=== PATIENT | male | born 1960 | race Caucasian/White ===

== ENCOUNTER 2019-07-17 10:29 | Observation (INO) | payer MEDICARE ==
--- NOTE | 2019-07-17 10:37 | ERPHSYRPT ---
- History of Present Illness Time Seen by Provider: 07/17/19 10:37 Source: patient, EMS Exam Limitations: clinical condition Physician History: 59 y/o diabetic white male with htn, h/o cva, in renal failure on [facility] dialysis. pt woke up relatively normal neurologically this am. bs 180s. pts out of pen insulin and was given vial humalog 2 units subq. pt became diaphoretic and a bit lethargic. ems called. bs on arrival 41. pt given 2 rounds of oral glucose and D10 iv. repeat bs 155 and neurologically improved. pt denies cp, denies soa , denies abd pain. Timing/Duration: today Severity: moderate Associated Symptoms: weakness Allergies/Adverse Reactions: No Known Drug Allergies Allergy (Unverified 07/17/19 10:45) - Review of Systems Constitutional: No Symptoms Eyes: No Symptoms Ears, Nose, & Throat: No Symptoms Respiratory: No Symptoms Cardiac: No Symptoms Abdominal/Gastrointestinal: No Symptoms Genitourinary Symptoms: No Symptoms Skin: No Symptoms Neurological: No Symptoms Psychological: No Symptoms Endocrine: Excessive Sweating (earlier at home) Hematologic/Lymphatic: No Symptoms Immunological/Allergic: No Symptoms All Other Systems: Reviewed and Negative - Past Medical History Pertinent Past Medical History: Yes Neurological History: No Pertinent History ENT History: No Pertinent History Cardiac History: No Pertinent History Respiratory History: No Pertinent History Endocrine Medical History: Diabetes Type I Musculoskeletal History: No Pertinent History GI Medical History: No Pertinent History History: Dialysis, Renal Disease Psycho-Social History: No Pertinent History Male Reproductive Disorders: No Pertinent History - Past Surgical History Neuro Surgical History: No Pertinent History Cardiac: No Pertinent History Respiratory: No Pertinent History Gastrointestinal: No Pertinent History Genitourinary: No Pertinent History Musculoskeletal: No Pertinent History Male Surgical History: No Pertinent History - Nursing Vital Signs Nursing Vital Signs: Initial Vital Signs Temperature 97.0 F 07/17/19 10:31 Pulse Rate 65 07/17/19 10:31 Respiratory Rate 16 07/17/19 10:31 Blood Pressure 101/58 07/17/19 10:31 O2 Sat by Pulse Oximetry 96 07/17/19 10:31 Pain Scale Pain Intensity 0 - Physical Exam General Appearance: lethargy (rousable) Eye Exam: PERRL/EOMI, eyes nml inspection Ears, Nose, Throat Exam: normal ENT inspection, moist mucous membranes Neck Exam: normal inspection, non-tender, supple, full range of motion Respiratory Exam: normal breath sounds, lungs clear, airway intact, No chest tenderness, No respiratory distress Cardiovascular Exam: regular rate/rhythm, normal heart sounds, normal peripheral pulses Gastrointestinal/Abdomen Exam: soft, normal bowel sounds, No tenderness Rectal Exam: not done Back Exam: normal inspection, normal range of motion, No CVA tenderness, No vertebral tenderness Extremity Exam: normal inspection, normal range of motion, pelvis stable Neurologic Exam: oriented x 3, cooperative, 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 as tested, other ( mildly lethargic but rousable) Skin Exam: diaphoresis Lymphatic Exam: No adenopathy SpO2 Interpretation: normal O2 Delivery: Room Air - Course Nursing assessment & vital signs reviewed: Yes Ordered Tests: Active Orders 24 hr Category Date Time Status Accucheck STAT Care 07/17/19 11:10 Active Director [facility] STAT Care 07/17/19 11:11 Active EKG-ER Only STAT Care 07/17/19 11:10 Active IV Insertion STAT Care 07/17/19 11:10 Active 1800 Calorie ADA Diet 07/17/19 Dinner Active CBC W DIFF Stat Lab 07/17/19 11:30 Completed CMP Stat Lab 07/17/19 11:30 Completed CULTURE,URINE Stat Lab 07/17/19 11:45 Received UA W/RFX UR CULTURE Stat Lab 07/17/19 11:45 Completed Medication Summary Discontinued Medications Generic Name Dose Route Start Last Admin Trade Name Freq PRN Reason Stop Dose Admin Sodium Chloride Confirm 07/17/19 11:09 Sodium Chloride 0.9% 1000 Ml Administered 07/17/19 11:10 Dose 1,000 mls @ ud .ROUTE .STK-MED ONE Sodium Chloride 1,000 mls @ 999 mls/hr 07/17/19 11:10 07/17/19 12:34 Sodium Chloride 0.9% 1000 Ml IV 07/17/19 12:10 Infused .Q1H1M STA Infusion Ceftriaxone Sodium/Dextrose 1 g in 50 mls @ 100 mls/hr 07/17/19 14:44 14:55 Rocephin 1 Gm-D5w 50 Ml Bag IV 07/17/19 15:13 100 ml/hr STAT STA 100 mls/hr Administration Ceftriaxone Sodium/Dextrose Confirm 07/17/19 14:53 Rocephin 1 Gm-D5w 50 Ml Bag Administered 07/17/19 14:54 Dose 1 g in 50 mls @ ud IV .STK-MED ONE Lab/Rad Data: Laboratory Result Diagrams 07/17/19 11:30 07/17/19 11:30 Laboratory Results 07/17/19 07/17/19 07/17/19 Range/Units 11:45 11:30 11:30 WBC 7.4 (4.0-10.5) K/mm3 RBC 3.69 L (4.1-5.6) M/mm3 Hgb 11.6 L (12.5-18.0) gm/dl Hct 35.9 L (42-50) % MCV 97.3 (78-100) fl MCH 31.4 (26-32) pg MCHC 32.3 (32-36) g/dl RDW 12.9 (11.5-14.0) % Plt Count 165 (150-450) K/mm3 MPV 10.1 H (6-9.5) fl Gran % 55.5 (36.0-66.0) % Eos # (Auto) 0.37 (0-0.5) Absolute Lymphs (auto) 2.32 (1.0-4.6) Absolute Monos (auto) 0.56 (0.0-1.3) Lymphocytes % 31.4 (24.0-44.0) % Monocytes % 7.6 (0.0-12.0) % Eosinophils % 5.0 (0.00-5.0) % Basophils % 0.5 (0.0-0.4) % Absolute Granulocytes 4.11 (1.4-6.9) Basophils # 0.04 (0-0.4) Sodium 140 (137-145) mmol/L Potassium 4.0 (3.5-5.1) mmol/L Chloride 93 L (98-107) mmol/L Carbon Dioxide 30 (22-30) mmol/L Anion Gap 20.5 H (5-15) MEQ/L BUN 50 H (9-20) mg/dL Creatinine 6.96 H (0.66-1.25) mg/dL Estimated GFR 8.7 ML/MIN Glucose 108 H (74-106) mg/dL Calcium 8.7 (8.4-10.2) mg/dL Total Bilirubin 0.60 (0.2-1.3) mg/dL AST 22 (17-59) U/L ALT 25 (0-50) U/L Alkaline Phosphatase 59 (38-126) U/L Serum Total Protein 6.9 (6.3-8.2) g/dL Albumin 4.1 (3.5-5.0) g/dL Urine Color YELLOW (YELLOW) Urine Appearance SLIGHTLY CLOUDY (CLEAR) Urine pH 9.0 (5-6) Ur Specific [place] 1.008 (1.005-1.025) Urine Protein 100 (Negative) Urine Ketones NEGATIVE (NEGATIVE) Urine Blood NEGATIVE (0-5) Андрей/ul Urine Nitrite NEGATIVE (NEGATIVE) Urine Bilirubin NEGATIVE (NEGATIVE) Urine Urobilinogen NEGATIVE (0-1) mg/dL Ur Leukocyte Esterase MODERATE (NEGATIVE) Urine WBC (Auto) 51-100 (0-5) /HPF Urine RBC (Auto) 11-15 (0-2) /HPF U Epithel Cells (Auto) NONE (FEW) /HPF Urine Bacteria (Auto) RARE (NEGATIVE) /HPF Urine Culture Reflexed ORDERED SEPARATELY (NO) Urine Glucose 50 (NEGATIVE) mg/dL - Progress Progress: improved, re-examined Discussed with : Basim Counseled pt/family regarding: lab results, diagnosis - Departure Departure Disposition: Observation Clinical Impression: Lethargy, Hypoglycemia, UTI (urinary tract infection) Condition: Stable Critical Care Time: No Critical Care Time(excluding separately billable procedures): Critical 30-74 mins Referrals: INGRID TAMEZ MD [Primary Care Provider] -
[2019-07-17] MEDS ORDERED: Sodium Chloride 0.9% 1000 ML 1,000 ML ONE (11:09)
[2019-07-17] MEDS ORDERED: Sodium Chloride 0.9% 1000 ML 1,000 ML IV STA (11:10)
[2019-07-17 11:36] LABS: Absolute Neutrophil Ct (ANC) 4.11 (1.4-6.9); BASOPHIL % 0.5 % (0.0-0.4); Basophil (Absolute #) 0.04 (0-0.4); Eosinophil (Absolute #) 0.37 (0-0.5); Hematocrit 35.9 % (42-50); Hemoglobin 11.6 gm/dl (12.5-18.0); Lymphocyte (Absolute #) 2.32 (1.0-4.6); Lymphocytes % 31.4 % (24.0-44.0); Mean Cell Volume 97.3 fl (78-100); Mean Corpuscular Hemoglobin 31.4 pg (26-32); Mean Corpuscular Hgb Concent. 32.3 g/dl (32-36); Mean Platelet Volume 10.1 fl (6-9.5); Monocyte (Absolute #) 0.56 (0.0-1.3); Monocytes % 7.6 % (0.0-12.0); Neutrophil % 55.5 % (36.0-66.0); Platelet Count 165 K/mm3 (150-450); Red Blood Count 3.69 M/mm3 (4.1-5.6); Red Cell Distribution Width 12.9 % (11.5-14.0); White Blood Count 7.4 K/mm3 (4.0-10.5)
[2019-07-17 11:57] LABS: ALBUMIN 4.1 g/dL (3.5-5.0); ANION GAP 20.5 MEQ/L (5-15); BILIRUBIN,TOTAL 0.6 mg/dL (0.2-1.3); Calcium 8.7 mg/dL (8.4-10.2); Creatinine 1 6.96 mg/dL (0.66-1.25); Total Protein 6.9 g/dL (6.3-8.2)
[2019-07-17 12:11] LABS: Appearance SLIGHTLY CLOUDY (CLEAR); Bacteria RARE /HPF (NEGATIVE); Bilirubin NEGATIVE (NEGATIVE); Blood NEGATIVE Ery/ul (0-5); Glucose 50 mg/dL (NEGATIVE); Ketones NEGATIVE (NEGATIVE); Leukocyte Esterase MODERATE (NEGATIVE); Nitrite NEGATIVE (NEGATIVE); Protein,Urine Dip 100 (Negative); Specific Gravity 1.008 (1.005-1.025); Urobilinogen NEGATIVE mg/dL (0-1); WBC 51-100 /HPF (0-5)
[2019-07-17] MEDS ORDERED: ROCEPHIN 1 Gm-D5w 50 ml Bag** 1 G/50 ML IVPB IV STA (14:44)
[2019-07-17] MEDS ORDERED: ROCEPHIN 1 Gm-D5w 50 ml Bag** 1 G/50 ML IVPB IV ONE (14:53)
[2019-07-17] MEDS ORDERED: Dextrose 5% -0.45 NaCl 1000 ML 1,000 ML IV ONE (16:39)
[2019-07-17] MEDS ORDERED: TYLENOL 325 MG PO PRN (16:57)
[2019-07-17] MEDS ORDERED: Zofran 4 MG/2 ML VIAL IV PRN (16:57)
[2019-07-17] MEDS ORDERED: Dextrose 5% -0.45 NaCl 1000 ML 1,000 ML IV SCH (17:15)
[2019-07-17] MEDS ORDERED: PRED-FORTE 1% OPHTHALMIC OP SCH ×2 (18:15→22:00)
[2019-07-17] MEDS ORDERED: Zestril 20 MG PO ONE (18:30)
[2019-07-17] MEDS ORDERED: PLAVIX 75 MG Tablet PO ONE (18:30)
[2019-07-17] MEDS ORDERED: Flomax 0.4 MG PO SCH ×2 (18:30→22:00)
[2019-07-17] MEDS ORDERED: FOLATE 1 MG PO ONE (18:30)
[2019-07-17] MEDS ORDERED: COSOPT OPHTHALMIC 10 ML OP SCH (18:30)
[2019-07-17] MEDS: COREG 12.5 MG PO SCH (21:16)
[2019-07-17] MEDS: COSOPT OPHTHALMIC 10 ML OP SCH (22:17)
[2019-07-17] MEDS: PRED-FORTE 1% OPHTHALMIC OP SCH (22:57)
[2019-07-18] MEDS ORDERED: Dulcolax 10 MG SUPP PR ONE (00:10)
[2019-07-18 05:03] LABS: Absolute Neutrophil Ct (ANC) 4.63 (1.4-6.9); BASOPHIL % 0.5 % (0.0-0.4); Basophil (Absolute #) 0.04 (0-0.4); Eosinophil % 4.5 % (0.00-5.0); Eosinophil (Absolute #) 0.38 (0-0.5); Hematocrit 35.7 % (42-50); Hemoglobin 11.6 gm/dl (12.5-18.0); Lymphocyte (Absolute #) 2.76 (1.0-4.6); Lymphocytes % 32.8 % (24.0-44.0); Mean Cell Volume 96.7 fl (78-100); Mean Corpuscular Hemoglobin 31.4 pg (26-32); Mean Corpuscular Hgb Concent. 32.5 g/dl (32-36); Mean Platelet Volume 10.4 fl (6-9.5); Monocytes % 7.1 % (0.0-12.0); Neutrophil % 55.1 % (36.0-66.0); Platelet Count 162 K/mm3 (150-450); Red Blood Count 3.69 M/mm3 (4.1-5.6); Red Cell Distribution Width 12.9 % (11.5-14.0); White Blood Count 8.4 K/mm3 (4.0-10.5)
[2019-07-18 05:14] LABS: ANION GAP 19.5 MEQ/L (5-15); BILIRUBIN,TOTAL 0.5 mg/dL (0.2-1.3); Calcium 8.7 mg/dL (8.4-10.2); Creatinine 1 7.94 mg/dL (0.66-1.25); Potassium 4.5 mmol/L (3.5-5.1); Total Protein 6.9 g/dL (6.3-8.2)
[2019-07-18] MEDS: NON-FORMULARY ITEM PO SCH ×2 (09:18→11:42)
[2019-07-18] MEDS: COREG 12.5 MG PO SCH (09:20)
--- NOTE | 2019-07-18 09:20 | PCM.SSS ---
History of Present Illness - Chief Complaint Chief Complaint: low blood sugars at home History of Present Illness: is a 59 y/o diabetic white male with htn, h/o cva, in renal failure on [facility] dialysis. pt woke up relatively normal neurologically this am. bs 180s. pts out of pen insulin and was given vial humalog 2 units subq. pt became diaphoretic and a bit lethargic. ems called. bs on arrival 41. pt given 2 rounds of oral glucose and D10 iv. repeat bs 155 and neurologically improved. patient denies chest pain, denies shortness of breath., denies abdominal pain. - Review of Systems Constitutional: No Fever, No Chills Eyes: No Symptoms Ears, Nose, & Throat: No Symptoms Respiratory: No Cough, No Short Of Breath Cardiac: No Chest Pain, No Edema, No Syncope Abdominal/Gastrointestinal: No Abdominal Pain, No Nausea, No Vomiting, No Diarrhea Genitourinary Symptoms: No Dysuria Musculoskeletal: No Back Pain, No Neck Pain Skin: No Rash Neurological: No Dizziness, No Focal Weakness, No Sensory Changes Psychological: No Symptoms Endocrine: No Symptoms Hematologic/Lymphatic: No Symptoms Immunological/Allergic: No Symptoms Medications & Allergies Home Medications: Home Medication List Carvedilol 12.5 mg [Coreg 12.5 mg] 12.5 mg PO BID 07/17/19 [History Confirmed 07/17/19] Clopidogrel Bisulfate [Clopidogrel] 75 mg PO DAILY 07/17/19 [History Confirmed 07/17/19] Dorzolamide HCl/Timolol Maleat [Dorzolamide-Timolol Eye Drops] 1 drop INTRAOP BID 07/17/19 [History Confirmed 07/17/19] Folic Acid 1 mg PO DAILY 07/17/19 [History Confirmed 07/17/19] Lisinopril 20 mg PO DAILY 07/17/19 [History Confirmed 07/17/19] Lubiprostone [Amitiza] 1 cap PO DAILY 07/17/19 [History Confirmed 07/17/19] Prednisolone Acetate OPHTH [Pred-Forte 1% Ophthalmic] 1 drop INTRAOP BID 07/17/19 [History Confirmed 07/17/19] Sevelamer Carbonate [Renvela] 800 mg PO TID 07/17/19 [History Confirmed 07/17/19 ] Tamsulosin HCl 0.4 mg PO HS 07/17/19 [History Confirmed 07/17/19] Allergies/Adverse Reactions: Allergies Allergy/AdvReac Type Severity Reaction Status Date / Time No Known Drug Allergies Allergy Unverified 07/17/19 10:45 - Past Medical History Past Medical History: Yes Neurological History: Paralysis, Peripheral Neuropathy, Stroke ENT History: Cataracts, Glaucoma, Macular Degeneration, Other Cardiac History: Coronary Artery Disease, High Cholesterol, Hypertension, Myocardial Infarction ([place]) Respiratory History: No Pertinent History Endocrine Medical History: Diabetes Type II, Hypoglycemia Musculoskelatal History: No Pertinent History GI Medical History: No Pertinent History History: Dialysis, Renal Disease Pyscho-Social History: No Pertinent History Male Reproductive Disorders: No Pertinent History Comment: legally blind bilaterateral eyes, 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, right upper arm fistula - Past Surgical History Past Surgical History: Yes Neuro Surgical History: No Pertinent History Cardiac History: No Pertinent History Respiratory Surgery: No Pertinent History GI Surgical History: No Pertinent History Genitourinary Surgical Hx: No Pertinent History Musculskeletal Surgical Hx: No Pertinent History Male Surgical History: No Pertinent History Other Surgical History: fistula, amputation right part foot and toes - Social History Smoking Status: Never smoker Exposure to second hand smoke: Yes Alcohol: None Drug Use: none - Physical Exam Vital Signs: Vital Signs - 24 hr Temp Pulse Resp BP Pulse Ox 07/18/19 07:32 98.2 F 83 20 127/66 99 07/18/19 04:10 98.0 F 79 17 150/71 98 07/18/19 00:11 98.1 F 81 18 151/67 98 07/17/19 20:09 97.5 F 80 20 160/74 99 07/17/19 17:27 97.2 F 74 18 182/82 07/17/19 17:09 97.2 F 74 20 182/82 100 07/17/19 16:24 97.3 F 72 20 179/90 100 07/17/19 15:24 70 18 117/72 97 07/17/19 12:56 66 16 112/66 93 L 07/17/19 12:05 65 18 103/73 100 07/17/19 10:31 97.0 F 65 16 101/58 96 General Appearance: no apparent distress, alert Neurologic Exam: alert, oriented x 3, cooperative, normal mood/affect, nml cerebellar function, nml station & gait, sensation nml, No motor deficits Eye Exam: PERRL/EOMI, eyes nml inspection Ears, Nose, Throat Exam: normal ENT inspection, TMs normal, pharynx normal, moist mucous membranes Neck Exam: normal inspection, non-tender, supple, full range of motion Respiratory Exam: normal breath sounds, lungs clear, No respiratory distress Cardiovascular Exam: regular rate/rhythm, normal heart sounds, normal peripheral pulses Gastrointestinal/Abdomen Exam: soft, normal bowel sounds, No tenderness, No mass Back Exam: normal inspection, normal range of motion, No CVA tenderness, No vertebral tenderness Extremity Exam: normal inspection, normal range of motion, pelvis stable Skin Exam: normal color, warm, dry, No rash Lymphatic Exam: No adenopathy Results - Labs Lab/Micro Results: Accuchecks Date 07/17/19 Date 07/17/19 Date 07/17/19 Time 20:00 Time 17:27 Time 17:30 Accucheck Value: 121 Accucheck Value: 112 Accucheck Value: 156 Accucheck Value: 212 Accucheck Value: 119 Accucheck Value: 119 Accucheck Value: 167 Accucheck Value: 121 Accucheck Value: 140 Lab Results-Last 24 Hours 07/17/19 07/17/19 07/17/19 Range/Units 11:30 11:30 11:30 WBC 7.4 (4.0-10.5) K/mm3 RBC 3.69 L (4.1-5.6) M/mm3 Hgb 11.6 L (12.5-18.0) gm/dl Hct 35.9 L (42-50) % MCV 97.3 (78-100) fl MCH 31.4 (26-32) pg MCHC 32.3 (32-36) g/dl RDW 12.9 (11.5-14.0) % Plt Count 165 (150-450) K/mm3 MPV 10.1 H (6-9.5) fl Gran % 55.5 (36.0-66.0) % Eos # (Auto) 0.37 (0-0.5) Absolute Lymphs (auto) 2.32 (1.0-4.6) Absolute Monos (auto) 0.56 (0.0-1.3) Lymphocytes % 31.4 (24.0-44.0) % Monocytes % 7.6 (0.0-12.0) % Eosinophils % 5.0 (0.00-5.0) % Basophils % 0.5 (0.0-0.4) % Absolute Granulocytes 4.11 (1.4-6.9) Basophils # 0.04 (0-0.4) Sodium 140 (137-145) mmol/L Potassium 4.0 (3.5-5.1) mmol/L Chloride 93 L (98-107) mmol/L Carbon Dioxide 30 (22-30) mmol/L Anion Gap 20.5 H (5-15) MEQ/L BUN 50 H (9-20) mg/dL Creatinine 6.96 H (0.66-1.25) mg/dL Estimated GFR 8.7 ML/MIN Glucose 108 H (74-106) mg/dL Hemoglobin A1c 5.78 (4.5-6.0) % Calcium 8.7 (8.4-10.2) mg/dL Total Bilirubin 0.60 (0.2-1.3) mg/dL AST 22 (17-59) U/L ALT 25 (0-50) U/L Alkaline Phosphatase 59 (38-126) U/L Serum Total Protein 6.9 (6.3-8.2) g/dL Albumin 4.1 (3.5-5.0) g/dL Urine Color (YELLOW) Urine Appearance (CLEAR) Urine pH (5-6) Ur Specific [place] (1.005-1.025) Urine Protein (Negative) Urine Ketones (NEGATIVE) Urine Blood (0-5) Андрей/ul Urine Nitrite (NEGATIVE) Urine Bilirubin (NEGATIVE) Urine Urobilinogen (0-1) mg/dL Ur Leukocyte Esterase (NEGATIVE) Urine WBC (Auto) (0-5) /HPF Urine RBC (Auto) (0-2) /HPF U Epithel Cells (Auto) (FEW) /HPF Urine Bacteria (Auto) (NEGATIVE) /HPF Urine Culture Reflexed (NO) Urine Glucose (NEGATIVE) mg/dL 07/17/19 07/18/19 07/18/19 Range/Units 11:45 04:32 04:32 WBC 8.4 (4.0-10.5) K/mm3 RBC 3.69 L (4.1-5.6) M/mm3 Hgb 11.6 L (12.5-18.0) gm/dl Hct 35.7 L (42-50) % MCV 96.7 (78-100) fl MCH 31.4 (26-32) pg MCHC 32.5 (32-36) g/dl RDW 12.9 (11.5-14.0) % Plt Count 162 (150-450) K/mm3 MPV 10.4 H (6-9.5) fl Gran % 55.1 (36.0-66.0) % Eos # (Auto) 0.38 (0-0.5) Absolute Lymphs (auto) 2.76 (1.0-4.6) Absolute Monos (auto) 0.60 (0.0-1.3) Lymphocytes % 32.8 (24.0-44.0) % Monocytes % 7.1 (0.0-12.0) % Eosinophils % 4.5 (0.00-5.0) % Basophils % 0.5 (0.0-0.4) % Absolute Granulocytes 4.63 (1.4-6.9) Basophils # 0.04 (0-0.4) Sodium 140 (137-145) mmol/L Potassium 4.5 (3.5-5.1) mmol/L Chloride 97 L (98-107) mmol/L Carbon Dioxide 28 (22-30) mmol/L Anion Gap 19.5 H (5-15) MEQ/L BUN 58 H (9-20) mg/dL Creatinine 7.94 H (0.66-1.25) mg/dL Estimated GFR 7.5 ML/MIN Glucose 108 H (74-106) mg/dL Hemoglobin A1c (4.5-6.0) % Calcium 8.7 (8.4-10.2) mg/dL Total Bilirubin 0.50 (0.2-1.3) mg/dL AST 22 (17-59) U/L ALT 24 (0-50) U/L Alkaline Phosphatase 63 (38-126) U/L Serum Total Protein 6.9 (6.3-8.2) g/dL Albumin 4.0 (3.5-5.0) g/dL Urine Color YELLOW (YELLOW) Urine Appearance SLIGHTLY CLOUDY (CLEAR) Urine pH 9.0 (5-6) Ur Specific [place] 1.008 (1.005-1.025) Urine Protein 100 (Negative) Urine Ketones NEGATIVE (NEGATIVE) Urine Blood NEGATIVE (0-5) Андрей/ul Urine Nitrite NEGATIVE (NEGATIVE) Urine Bilirubin NEGATIVE (NEGATIVE) Urine Urobilinogen NEGATIVE (0-1) mg/dL Ur Leukocyte Esterase MODERATE (NEGATIVE) Urine WBC (Auto) 51-100 (0-5) /HPF Urine RBC (Auto) 11-15 (0-2) /HPF U Epithel Cells (Auto) NONE (FEW) /HPF Urine Bacteria (Auto) RARE (NEGATIVE) /HPF Urine Culture Reflexed ORDERED SEPARATELY (NO) Urine Glucose 50 (NEGATIVE) mg/dL Microbiology 07/17/19 11:45 Urine Culture - Preliminary Catherized NO GROWTH TO DATE Accuchecks Date 07/17/19 Date 07/17/19 Date 07/17/19 Time 20:00 Time 17:27 Time 17:30 Accucheck Value: 121 Accucheck Value: 112 Accucheck Value: 156 Accucheck Value: 212 Accucheck Value: 119 Accucheck Value: 119 Accucheck Value: 167 Accucheck Value: 121 Accucheck Value: 140 Assessment/Plan (1) Hypoglycemia Current Visit: Yes Status: Chronic Code(s): E16.2 - HYPOGLYCEMIA, UNSPECIFIED (2) Type 2 diabetes with nephropathy Current Visit: Yes Status: Acute Code(s): E11.21 - TYPE 2 DIABETES MELLITUS WITH DIABETIC NEPHROPATHY (3) UTI (urinary tract infection) Current Visit: Yes Status: Acute Qualifiers: Urinary tract infection type: site unspecified Code(s): N39.0 - URINARY TRACT INFECTION, SITE NOT SPECIFIED Hospital Summary - Hospital Course Hospital Course: Chief Complaint Diagnosis uti, hypoglycemia Allergies Allergy/AdvReac Type Severity Reaction Status Date / Time No Known Drug Allergies Allergy Unverified 07/17/19 10:45 Vital Signs (Last 24 hours) Temp Pulse Resp BP Pulse Ox 07/18/19 07:32 98.2 F 83 20 127/66 99 07/18/19 04:10 98.0 F 79 17 150/71 98 07/18/19 00:11 98.1 F 81 18 151/67 98 07/17/19 20:09 97.5 F 80 20 160/74 99 07/17/19 17:27 97.2 F 74 18 182/82 07/17/19 17:09 97.2 F 74 20 182/82 100 07/17/19 16:24 97.3 F 72 20 179/90 100 07/17/19 15:24 70 18 117/72 97 07/17/19 12:56 66 16 112/66 93 L 07/17/19 12:05 65 18 103/73 100 07/17/19 10:31 97.0 F 65 16 101/58 96 Home Medications Medication Instructions Recorded Confirmed Last Taken Type Carvedilol 12.5 mg [Coreg 12.5 12.5 mg PO BID 07/17/19 07/17/19 07/16/19 History mg] 12.5 Clopidogrel Bisulfate [Clopidogrel] 75 mg PO DAILY 07/17/19 07/17/19 07/16/19 History 75MG Dorzolamide HCl/Timolol Maleat 1 drop INTRAOP BID 07/17/19 07/17/19 07/16/19 History [Dorzolamide-Timolol Eye Drops] 1 GTT Folic Acid 1 mg PO DAILY 07/17/19 07/17/19 07/16/19 History 1MG Lisinopril 20 mg PO DAILY 07/17/19 07/17/19 07/16/19 History 20MG Lubiprostone [Amitiza] 1 cap PO DAILY 07/17/19 07/17/19 07/16/19 History 24MCG Prednisolone Acetate OPHTH 1 drop INTRAOP BID 07/17/19 07/17/19 07/16/19 History [Pred-Forte 1% Ophthalmic] 1GTT Sevelamer Carbonate [Renvela] 800 mg PO TID 07/17/19 07/17/19 07/16/19 History 800MG Tamsulosin HCl 0.4 mg PO HS 07/17/19 07/17/19 07/16/19 History 0.4MG Current Medications Generic Name Dose Route Start Last Admin Trade Name Freq PRN Reason Stop Dose Admin Acetaminophen 325 mg 07/17/19 16:57 Tylenol 325 Mg PO 08/16/19 16:56 Q4H PRN PRN PAIN, FEVER, HEADACHE Carvedilol 12.5 mg 07/17/19 22:00 07/17/19 21:16 Coreg 12.5 Mg PO 08/16/19 21:59 12.5 mg BID JHON Administration Clopidogrel Bisulfate 75 mg 07/18/19 10:00 Plavix 75 Mg Tablet PO 08/17/19 09:59 DAILY JHON Dorzolamide/Timolol 1 ml 07/17/19 22:00 07/17/19 22:17 Cosopt Ophthalmic 10 Ml OP 08/16/19 21:59 1 ml BID JHON Administration Folic Acid 1 mg 07/18/19 10:00 Folate 1 Mg PO 08/17/19 09:59 DAILY JHON Ceftriaxone Sodium/Dextrose 1 g in 50 mls @ 100 mls/hr 07/18/19 10:00 Rocephin 1 Gm-D5w 50 Ml Bag IV 08/17/19 09:59 Q24H10 JHON Dextrose/Sodium Chloride 1,000 mls @ 50 mls/hr 07/17/19 17:15 07/17/19 18:01 Dextrose 5% -0.45 Nacl 1000 Ml IV 08/16/19 17:14 Not Given .Q20H JHON Lisinopril 20 mg 07/18/19 10:00 Zestril 20 Mg PO 08/17/19 09:59 DAILY JHON Lubiprostone 24 mcg 07/18/19 10:00 Amitiza PO 07/18/19 10:01 DAILY ONE Non-Formulary Medication 1 each 07/18/19 07:30 Non-Formulary Item PO 08/17/19 07:29 TIDAC JHON Ondansetron HCl 4 mg 07/17/19 16:57 Zofran 4 Mg/2 Ml Vial IV 08/16/19 16:56 Q6H PRN PRN NAUSEA/VOMITING Prednisolone Acetate 1 ml 07/18/19 10:00 07/17/19 22:57 Pred-Forte 1% Ophthalmic OP 08/17/19 09:59 1 ml BID JHON Administration Tamsulosin HCl 0.4 mg 07/17/19 22:00 07/17/19 21:15 Flomax 0.4 Mg PO 08/16/19 21:59 0.4 mg HS JHON Administration Discontinued Medications Generic Name Dose Route Start Last Admin Trade Name Freq PRN Reason Stop Dose Admin Bisacodyl 10 mg 07/18/19 00:10 10/04/19 00:16 Dulcolax 10 Mg Supp NC 07/18/19 00:11 10 mg STAT ONE Administration Clopidogrel Bisulfate 75 mg 07/17/19 18:30 07/17/19 18:29 Plavix 75 Mg Tablet PO 07/17/19 18:31 75 mg DAILY ONE Administration Dorzolamide/Timolol 1 ml 07/17/19 18:30 Cosopt Ophthalmic 10 Ml OP 08/16/19 18:45 BID JHON Folic Acid 1 mg 07/17/19 18:30 07/17/19 18:28 Folate 1 Mg PO 07/17/19 18:31 1 mg DAILY ONE Administration Sodium Chloride Confirm 07/17/19 11:09 Sodium Chloride 0.9% 1000 Ml Administered 07/17/19 11:10 Dose 1,000 mls @ ud .ROUTE .STK-MED ONE Sodium Chloride 1,000 mls @ 999 mls/hr 07/17/19 11:10 07/17/19 12:34 Sodium Chloride 0.9% 1000 Ml IV 07/17/19 12:10 Infused .Q1H1M STA Infusion Ceftriaxone Sodium/Dextrose 1 g in 50 mls @ 100 mls/hr 07/17/19 14:44 14:55 Rocephin 1 Gm-D5w 50 Ml Bag IV 07/17/19 15:13 100 ml/hr STAT STA 100 mls/hr Administration Ceftriaxone Sodium/Dextrose Confirm 07/17/19 14:53 Rocephin 1 Gm-D5w 50 Ml Bag Administered 07/17/19 14:54 Dose 1 g in 50 mls @ ud IV .STK-MED ONE Dextrose/Sodium Chloride Confirm 07/17/19 16:39 Dextrose 5% -0.45 Nacl 1000 Ml Administered 07/17/19 16:40 Dose 1,000 mls @ ud IV .STK-MED ONE Lisinopril 20 mg 07/18/19 18:30 Zestril 20 Mg PO 07/18/19 18:31 DAILY ONE Lisinopril 20 mg 07/17/19 18:30 07/17/19 18:28 Zestril 20 Mg PO 07/17/19 18:31 20 mg DAILY ONE Administration Prednisolone Acetate 1 ml 07/17/19 18:15 Pred-Forte 1% Ophthalmic OP 08/16/19 18:14 UD JHON Prednisolone Acetate 1 ml 07/17/19 22:00 Pred-Forte 1% Ophthalmic OP 08/16/19 21:59 UD JHON Tamsulosin HCl 0.4 mg 07/17/19 18:30 Flomax 0.4 Mg PO 08/16/19 18:45 HS JHON Intake & Output (Last 24 hours) 07/15/19 07/16/19 07/17/19 07/18/19 11:59 11:59 11:59 11:59 Intake Total 1181 Output Total 275 Balance 906 Weight 225 kg 108.1 kg Microbiology Results (Last 24 hours) 07/17/19 11:45 Catherized Urine Culture - Preliminary NO GROWTH TO DATE Laboratory Results (Last 24 hours) 07/18/19 07/18/19 07/17/19 04:32 04:32 11:45 WBC 8.4 RBC 3.69 L Hgb 11.6 L Hct 35.7 L MCV 96.7 MCH 31.4 MCHC 32.5 RDW 12.9 Plt Count 162 MPV 10.4 H Gran % 55.1 Eos # (Auto) 0.38 Absolute Lymphs (auto) 2.76 Absolute Monos (auto) 0.60 Lymphocytes % 32.8 Monocytes % 7.1 Eosinophils % 4.5 Basophils % 0.5 Absolute Granulocytes 4.63 Basophils # 0.04 Sodium 140 Potassium 4.5 Chloride 97 L Carbon Dioxide 28 Anion Gap 19.5 H BUN 58 H Creatinine 7.94 H Estimated GFR 7.5 Glucose 108 H Hemoglobin A1c Calcium 8.7 Total Bilirubin 0.50 AST 22 ALT 24 Alkaline Phosphatase 63 Serum Total Protein 6.9 Albumin 4.0 Urine Color YELLOW Urine Appearance SLIGHTLY CLOUDY Urine pH 9.0 Ur Specific [place] 1.008 Urine Protein 100 Urine Ketones NEGATIVE Urine Blood NEGATIVE Urine Nitrite NEGATIVE Urine Bilirubin NEGATIVE Urine Urobilinogen NEGATIVE Ur Leukocyte Esterase MODERATE Urine WBC (Auto) 51-100 Urine RBC (Auto) 11-15 U Epithel Cells (Auto) NONE Urine Bacteria (Auto) RARE Urine Culture Reflexed ORDERED SEPARATELY Urine Glucose 50 07/17/19 07/17/19 07/17/19 11:30 11:30 11:30 WBC 7.4 RBC 3.69 L Hgb 11.6 L Hct 35.9 L MCV 97.3 MCH 31.4 MCHC 32.3 RDW 12.9 Plt Count 165 MPV 10.1 H Gran % 55.5 Eos # (Auto) 0.37 Absolute Lymphs (auto) 2.32 Absolute Monos (auto) 0.56 Lymphocytes % 31.4 Monocytes % 7.6 Eosinophils % 5.0 Basophils % 0.5 Absolute Granulocytes 4.11 Basophils # 0.04 Sodium 140 Potassium 4.0 Chloride 93 L Carbon Dioxide 30 Anion Gap 20.5 H BUN 50 H Creatinine 6.96 H Estimated GFR 8.7 Glucose 108 H Hemoglobin A1c 5.78 Calcium 8.7 Total Bilirubin 0.60 AST 22 ALT 25 Alkaline Phosphatase 59 Serum Total Protein 6.9 Albumin 4.1 Urine Color Urine Appearance Urine pH Ur Specific [place] Urine Protein Urine Ketones Urine Blood Urine Nitrite Urine Bilirubin Urine Urobilinogen Ur Leukocyte Esterase Urine WBC (Auto) Urine RBC (Auto) U Epithel Cells (Auto) Urine Bacteria (Auto) Urine Culture Reflexed Urine Glucose Orders (Last 24 hours) Category Date Time Status Up With Assistance TOLERATED Activity 07/17/19 16:57 Active ACCUCHECK [Accucheck] Q4H Care 07/17/19 16:59 Active Accucheck STAT Care 07/17/19 11:10 Completed Film Washer STAT Care 07/17/19 11:11 Completed Code Status Order ROUTINE Care 07/17/19 16:57 Active EKG-ER Only STAT Care 07/17/19 11:10 Completed IV Insertion STAT Care 07/17/19 11:[address] in Observation ROUTINE Care 07/17/19 16:57 Active Telemetry q6h Care 07/17/19 16:57 Active Weight,Daily 0600 Care 07/17/19 16:57 Active 1800 Calorie ADA Diet 07/17/19 Dinner Active CBC W DIFF AM.LAB Lab 07/18/19 04:32 Completed CBC W DIFF Stat Lab 07/17/19 11:30 Completed CMP AM.LAB Lab 07/18/19 04:32 Completed CMP Stat Lab 07/17/19 11:30 Completed CULTURE,URINE Stat Lab 07/17/19 11:45 Results HEMOGLOBIN A1C Urgent Lab 07/17/19 11:30 Completed UA W/RFX UR CULTURE Stat Lab 07/17/19 11:45 Completed Acetaminophen 325 mg [Tylenol 325 mg] Med 07/17/19 16:57 Active 325 mg PO Q4H PRN PRN Bisacodyl 10 mg [Dulcolax 10 MG SUPP] Med 07/18/19 00:10 Discontinued 10 mg NC STAT ONE Carvedilol 12.5 mg [Coreg 12.5 mg] Med 07/17/19 22:00 Active 12.5 mg PO BID Ceftriaxone 1 GM/50 ML PREMIX* [ROCEPHIN 1 Gm-D5w 50 ml Med 07/18/19 10:00 Active Bag] 1 g in 50 ml IV Q24H10 Ceftriaxone 1 GM/50 ML PREMIX* [ROCEPHIN 1 Gm-D5w 50 ml Med 07/17/19 14:44 Discontinued Bag] 1 g in 50 ml IV STAT Ceftriaxone 1 GM/50 ML PREMIX* [ROCEPHIN 1 Gm-D5w 50 ml Med 07/17/19 14:53 Discontinued Bag] 1 g in 50 ml IV UD Clopidogrel Bisulfate 75 mg [PLAVIX 75 MG Tablet] Med 07/18/19 10:00 Active 75 mg PO DAILY Clopidogrel Bisulfate 75 mg [PLAVIX 75 MG Tablet] Med 07/17/19 18:30 Discontinued 75 mg PO DAILY ONE D5w-0.45 NaCl 1000 ml [Dextrose 5% -0.45 NaCl 1000 ML] Med 07/17/19 17:15 Active 1,000 ml IV 50 mls/hr D5w-0.45 NaCl 1000 ml [Dextrose 5% -0.45 NaCl 1000 ML] Med 07/17/19 16:39 Discontinued 1,000 ml IV UD Folic Acid 1 mg [Folate 1 mg] Med 07/18/19 10:00 Active 1 mg PO DAILY Folic Acid 1 mg [Folate 1 mg] Med 07/17/19 18:30 Discontinued 1 mg PO DAILY ONE Lisinopril 20 mg [Zestril 20 MG] Med 07/18/19 10:00 Active 20 mg PO DAILY Lisinopril 20 mg [Zestril 20 MG] Med 07/17/19 18:30 Discontinued 20 mg PO DAILY ONE Lisinopril 20 mg [Zestril 20 MG] Med 07/18/19 18:30 Discontinued 20 mg PO DAILY ONE Lubiprostone [Amitiza] Med 07/18/19 10:00 Once 24 mcg PO DAILY ONE NaCl 0.9% 1000 ml [Sodium Chloride 0.9% 1000 ML] 1,000 Med 07/17/19 11:09 Discontinued ml .ROUTE UD NaCl 0.9% 1000 ml [Sodium Chloride 0.9% 1000 ML] 1,000 Med 07/17/19 11:10 Discontinued ml IV 999 mls/hr Non-Formulary Drug [Non-Formulary Item] Med 07/18/19 07:30 Ordered 1 each PO TIDAC Ondansetron HCl 4 mg/2 ml [Zofran 4 MG/2 ML VIAL] Med 07/17/19 16:57 Active 4 mg IV Q6H PRN PRN Prednisolone Acetate OPHTH [Pred-Forte 1% Ophthalmic Med 07/18/19 10:00 Active ] 1 ml OP BID Prednisolone Acetate OPHTH [Pred-Forte 1% Ophthalmic Med 07/17/19 18:15 Discontinued ] 1 ml OP UD Prednisolone Acetate OPHTH [Pred-Forte 1% Ophthalmic Med 07/17/19 22:00 Discontinued ] 1 ml OP UD Tamsulosin HCl 0.4 mg [Flomax 0.4 MG] Med 07/17/19 18:30 Discontinued 0.4 mg PO HS Tamsulosin HCl 0.4 mg [Flomax 0.4 MG] Med 07/17/19 22:00 Active 0.4 mg PO HS Timolol Maleate/Dorzolam HCl [Cosopt Ophthalmic 10 ml Med 07/17/19 18:30 Discontinued ] 1 ml OP BID Timolol Maleate/Dorzolam HCl [Cosopt Ophthalmic 10 ml Med 07/17/19 22:00 Active ] 1 ml OP BID Patient Care Notes (Last 24 hours) 07/17/19 21:48 Nursing Note by Sumaya Alegria 212 at 2000, stated that patient had just eaten prior to [employer] checking blood sugar, plus on D5 1/2 NS. Pt stated yeah, I crashed this morning when she gave me 2 units and my blood sugar was 181 at home, causing it to drop to 41. Will continue to monitor. Initialized on 07/17/19 21:48 - END OF NOTE 07/17/19 21:44 Nursing Note by Raji,Sumaya spoke with and patient regarding eye drops, stated cosopt eye drops are to be given in both eyes BID. home med entry updated. Initialized on 07/17/19 21:44 - END OF NOTE - Vitals & Intake/Output Vital Signs: Vital Signs Temperature 98.2 F 07/18/19 07:32 Pulse Rate 83 07/18/19 07:32 Respiratory Rate 20 07/18/19 07:32 Blood Pressure 127/66 07/18/19 07:32 O2 Sat by Pulse Oximetry 99 07/18/19 07:32 Intake & Output: Intake & Output 07/15/19 07/16/19 07/17/19 07/18/19 11:59 11:59 11:59 11:59 Intake Total 1181 Output Total 275 Balance 906 Weight 225 kg 108.1 kg - Lab Result Diagrams: 07/18/19 04:32 07/18/19 04:32 Lab Results-Last 24 Hrs: Accuchecks Date 07/17/19 Date 07/17/19 Date 07/17/19 Time 20:00 Time 17:27 Time 17:30 Accucheck Value: 121 Accucheck Value: 112 Accucheck Value: 156 Accucheck Value: 212 Accucheck Value: 119 Accucheck Value: 119 Accucheck Value: 167 Accucheck Value: 121 Accucheck Value: 140 Lab Results-Last 24 Hours 07/17/19 07/17/19 07/17/19 Range/Units 11:30 11:30 11:30 WBC 7.4 (4.0-10.5) K/mm3 RBC 3.69 L (4.1-5.6) M/mm3 Hgb 11.6 L (12.5-18.0) gm/dl Hct 35.9 L (42-50) % MCV 97.3 (78-100) fl MCH 31.4 (26-32) pg MCHC 32.3 (32-36) g/dl RDW 12.9 (11.5-14.0) % Plt Count 165 (150-450) K/mm3 MPV 10.1 H (6-9.5) fl Gran % 55.5 (36.0-66.0) % Eos # (Auto) 0.37 (0-0.5) Absolute Lymphs (auto) 2.32 (1.0-4.6) Absolute Monos (auto) 0.56 (0.0-1.3) Lymphocytes % 31.4 (24.0-44.0) % Monocytes % 7.6 (0.0-12.0) % Eosinophils % 5.0 (0.00-5.0) % Basophils % 0.5 (0.0-0.4) % Absolute Granulocytes 4.11 (1.4-6.9) Basophils # 0.04 (0-0.4) Sodium 140 (137-145) mmol/L Potassium 4.0 (3.5-5.1) mmol/L Chloride 93 L (98-107) mmol/L Carbon Dioxide 30 (22-30) mmol/L Anion Gap 20.5 H (5-15) MEQ/L BUN 50 H (9-20) mg/dL Creatinine 6.96 H (0.66-1.25) mg/dL Estimated GFR 8.7 ML/MIN Glucose 108 H (74-106) mg/dL Hemoglobin A1c 5.78 (4.5-6.0) % Calcium 8.7 (8.4-10.2) mg/dL Total Bilirubin 0.60 (0.2-1.3) mg/dL AST 22 (17-59) U/L ALT 25 (0-50) U/L Alkaline Phosphatase 59 (38-126) U/L Serum Total Protein 6.9 (6.3-8.2) g/dL Albumin 4.1 (3.5-5.0) g/dL Urine Color (YELLOW) Urine Appearance (CLEAR) Urine pH (5-6) Ur Specific [place] (1.005-1.025) Urine Protein (Negative) Urine Ketones (NEGATIVE) Urine Blood (0-5) Андрей/ul Urine Nitrite (NEGATIVE) Urine Bilirubin (NEGATIVE) Urine Urobilinogen (0-1) mg/dL Ur Leukocyte Esterase (NEGATIVE) Urine WBC (Auto) (0-5) /HPF Urine RBC (Auto) (0-2) /HPF U Epithel Cells (Auto) (FEW) /HPF Urine Bacteria (Auto) (NEGATIVE) /HPF Urine Culture Reflexed (NO) Urine Glucose (NEGATIVE) mg/dL 07/17/19 07/18/19 07/18/19 Range/Units 11:45 04:32 04:32 WBC 8.4 (4.0-10.5) K/mm3 RBC 3.69 L (4.1-5.6) M/mm3 Hgb 11.6 L (12.5-18.0) gm/dl Hct 35.7 L (42-50) % MCV 96.7 (78-100) fl MCH 31.4 (26-32) pg MCHC 32.5 (32-36) g/dl RDW 12.9 (11.5-14.0) % Plt Count 162 (150-450) K/mm3 MPV 10.4 H (6-9.5) fl Gran % 55.1 (36.0-66.0) % Eos # (Auto) 0.38 (0-0.5) Absolute Lymphs (auto) 2.76 (1.0-4.6) Absolute Monos (auto) 0.60 (0.0-1.3) Lymphocytes % 32.8 (24.0-44.0) % Monocytes % 7.1 (0.0-12.0) % Eosinophils % 4.5 (0.00-5.0) % Basophils % 0.5 (0.0-0.4) % Absolute Granulocytes 4.63 (1.4-6.9) Basophils # 0.04 (0-0.4) Sodium 140 (137-145) mmol/L Potassium 4.5 (3.5-5.1) mmol/L Chloride 97 L (98-107) mmol/L Carbon Dioxide 28 (22-30) mmol/L Anion Gap 19.5 H (5-15) MEQ/L BUN 58 H (9-20) mg/dL Creatinine 7.94 H (0.66-1.25) mg/dL Estimated GFR 7.5 ML/MIN Glucose 108 H (74-106) mg/dL Hemoglobin A1c (4.5-6.0) % Calcium 8.7 (8.4-10.2) mg/dL Total Bilirubin 0.50 (0.2-1.3) mg/dL AST 22 (17-59) U/L ALT 24 (0-50) U/L Alkaline Phosphatase 63 (38-126) U/L Serum Total Protein 6.9 (6.3-8.2) g/dL Albumin 4.0 (3.5-5.0) g/dL Urine Color YELLOW (YELLOW) Urine Appearance SLIGHTLY CLOUDY (CLEAR) Urine pH 9.0 (5-6) Ur Specific [place] 1.008 (1.005-1.025) Urine Protein 100 (Negative) Urine Ketones NEGATIVE (NEGATIVE) Urine Blood NEGATIVE (0-5) Андрей/ul Urine Nitrite NEGATIVE (NEGATIVE) Urine Bilirubin NEGATIVE (NEGATIVE) Urine Urobilinogen NEGATIVE (0-1) mg/dL Ur Leukocyte Esterase MODERATE (NEGATIVE) Urine WBC (Auto) 51-100 (0-5) /HPF Urine RBC (Auto) 11-15 (0-2) /HPF U Epithel Cells (Auto) NONE (FEW) /HPF Urine Bacteria (Auto) RARE (NEGATIVE) /HPF Urine Culture Reflexed ORDERED SEPARATELY (NO) Urine Glucose 50 (NEGATIVE) mg/dL Micro Results-Entire Visit: Microbiology 07/17/19 11:45 Urine Culture - Preliminary Catherized NO GROWTH TO DATE Accuchecks Date 07/17/19 Date 07/17/19 Date 07/17/19 Time 20:00 Time 17:27 Time 17:30 Accucheck Value: 121 Accucheck Value: 112 Accucheck Value: 156 Accucheck Value: 212 Accucheck Value: 119 Accucheck Value: 119 Accucheck Value: 167 Accucheck Value: 121 Accucheck Value: 140 - Discharge Discharge Date: 07/18/19 Disposition: Home, Self-Care Condition: Stable Prescriptions: No Action Lubiprostone [Amitiza] 1 cap PO DAILY Prednisolone Acetate OPHTH [Pred-Forte 1% Ophthalmic] 1 drop INTRAOP BID Lisinopril 20 mg PO DAILY Folic Acid 1 mg PO DAILY Dorzolamide HCl/Timolol Maleat [Dorzolamide-Timolol Eye Drops] 1 drop INTRAOP BID Clopidogrel Bisulfate [Clopidogrel] 75 mg PO DAILY Carvedilol 12.5 mg [Coreg 12.5 mg] 12.5 mg PO BID Tamsulosin HCl 0.4 mg PO HS Sevelamer Carbonate [Renvela] 800 mg PO TID Follow up with: INGRID TAMEZ MD [Primary Care Provider] - 1 Week
[2019-07-18] MEDS: COSOPT OPHTHALMIC 10 ML OP SCH (09:26)
[2019-07-18] MEDS: PRED-FORTE 1% OPHTHALMIC OP SCH (09:27)
[2019-07-18] MEDS ORDERED: ROCEPHIN 1 Gm-D5w 50 ml Bag** 1 G/50 ML IVPB IV SCH (10:00)
[2019-07-18] MEDS ORDERED: FOLATE 1 MG PO SCH (10:00)
[2019-07-18] MEDS ORDERED: AMITIZA PO ONE (10:00)
[2019-07-18] MEDS ORDERED: PLAVIX 75 MG Tablet PO SCH (10:00)
[2019-07-18] MEDS ORDERED: Zestril 20 MG PO SCH (10:00)
[2019-07-18 12:30] VITALS: BP 107/60; PULSE 86; O2SAT 97
[2019-07-18] MEDS ORDERED: Zestril 20 MG PO ONE (18:30)
== END 2019-07-18 12:25 | disposition home health service (06) ==
LOC: ED 10:29 → MED SURG 16:45
PROVIDERS: ADMIT General Practice; ATTEND General Practice
DX: E11.649 Type 2 diabetes mellitus with hypoglycemia without coma (principal); E11.21 Type 2 diabetes mellitus with diabetic nephropathy; N39.0 Urinary tract infection, site not specified; I10 Essential (primary) hypertension; Z79.899 Other long term (current) drug therapy; E78.00 Pure hypercholesterolemia, unspecified; Z99.2 Dependence on renal dialysis; I25.10 Atherosclerotic heart disease of native coronary artery without angina pectoris
CPT/HCPCS: 36000; 36415; 80053; 81001; 82962; 83036; 85025; 87086; 93005; 93041; 96360; 99285; 99291; P9612; 93268; J0696; A9270-GY; G0378

== ENCOUNTER 2020-03-23 05:52 | Emergency (ER) | payer MEDICARE ==
[2020-03-23] MEDS ORDERED: LEVOPHED 4 MG/4 ML 4,000 MCG in Dextrose 5%/Water IV Soln. 500 ML 500 ML IV ONE (05:53)
[2020-03-23] MEDS ORDERED: Sodium Chloride 0.9% 500 ML 500 ML IV ONE (06:02)
[2020-03-23] MEDS ORDERED: SODIUM BICARBONATE 50 MEQ/50 ML ABBOJECT IV ONE (06:08)
[2020-03-23] MEDS ORDERED: Zofran 4 MG/2 ML VIAL ONE (06:10)
[2020-03-23 06:16] LABS: Hematocrit 35.1 % (42-50); Hemoglobin 11.2 gm/dl (12.5-18.0); Mean Corpuscular Hemoglobin 31.9 pg (26-32); Mean Corpuscular Hgb Concent. 31.9 g/dl (32-36); Mean Platelet Volume 9.9 fl (7.5-11.0); Platelet Count 249 K/mm3 (150-450); Red Blood Count 3.51 M/mm3 (4.1-5.6); Red Cell Distribution Width 13.7 % (11.5-14.0); White Blood Count 10.3 K/mm3 (4.0-10.5)
[2020-03-23 06:25] LABS: A-aADO2 630; ABG HEMOGLOBIN 11.1; ABG POTASSIUM 3.3 (3.5-5.1); ARTERIAL BLD GAS O2 SATURATION 58.7 % (95-100); ARTERIAL BLOOD GAS BASE EXCESS 2.8 (-2.0-2.0); ARTERIAL BLOOD GAS FIO2 100 %; ARTERIAL BLOOD GAS PCO2 40 mmHg (35-45); ARTERIAL BLOOD GAS pH 7.44 (7.35-7.45); CARBOXYHEMOGLOBIN 2.8 % THgb (0.0-6.9); HCO3- 27.2 (22-28); HGB O2 SAT 56.8 g/dF (94-100); Methhemoglobin 0.5 % (1.4-1.5); paO2 pAO1 0.05
[2020-03-23 06:26] LABS: ARTERIAL BLOOD GAS PO2 33 mmHg (75-100)
[2020-03-23 06:27] LABS: ABG SITE LEFT RADIAL; ALLEN TEST OK? NO
[2020-03-23 06:27] LABS: ALBUMIN 3.9 g/dL (3.5-5.0); ANION GAP 19.9 MEQ/L (5-15); BILIRUBIN,TOTAL 0.4 mg/dL (0.2-1.3); Calcium 8.3 mg/dL (8.4-10.2); Creatinine 1 11.41 mg/dL (0.66-1.25); Potassium 3.5 mmol/L (3.5-5.1); Total Protein 6.9 g/dL (6.3-8.2)
[2020-03-23] MEDS ORDERED: Sodium Chloride 0.9% 1000 ML 1,000 ML ONE (06:38)
--- NOTE | 2020-03-23 06:51 | ERPHSYRPT ---
- History of Present Illness Source: patient, EMS Exam Limitations: clinical condition Physician History: 59 yo wm w ESRD on dialysis x5 yrs and peritoneal dialysis x1 yr presents w acute dyspnea starting at 4:00AM. Pt's BP 75/34 upon arrival. IV access started per EMS in route and 4mg IV zofran given. 500ml fluid bolus started immediately and second IV site started. Pt's LOC became altered so Levafed drip started in second IV site w increase of systolic BP to 106. 2amps NaHCO3 given in case KCl high. CXR w cardiomegaly, and initial EKG w NSR/prolonged QTc/ST-T wave changes. Timing/Duration: other (Started 4:00AM) Activities at Onset: sleep Severity of Dyspnea-Max: severe Severity of Dyspnea-Current: severe Possible Cause: occasional episodes Associated Symptoms: edema, weakness, No cough, No chest pain/discomfort Allergies/Adverse Reactions: No Known Drug Allergies Allergy (Unverified 03/23/20 06:44) Home Medications: Carvedilol 12.5 mg [Coreg 12.5 mg] 12.5 mg PO BID 07/17/19 [History] Clopidogrel Bisulfate [Clopidogrel] 75 mg PO DAILY 07/17/19 [History] Dorzolamide HCl/Timolol Maleat [Dorzolamide-Timolol Eye Drops] 1 drop INTRAOP BID 07/17/19 [History] Folic Acid 1 mg PO DAILY 07/17/19 [History] Lubiprostone [Amitiza] 1 cap PO DAILY 07/17/19 [History] Prednisolone Acetate OPHTH [Pred-Forte 1% Ophthalmic] 1 drop INTRAOP BID 07/17/19 [History] Sevelamer Carbonate [Renvela] 800 mg PO TID 07/17/19 [History] Tamsulosin HCl 0.4 mg PO HS 07/17/19 [History] Aspirin EC 81 mg [Ecotrin 81 mg] 81 mg PO DAILY 03/23/20 [History] Atorvastatin Calcium 80 mg PO DAILY 03/23/20 [History] Meclizine HCl 25 mg [Antivert 25 mg] 25 mg PO Q8H PRN PRN 03/23/20 [ History] lisinopriL [Lisinopril] 5 mg PO DAILY 03/23/20 [History] Hx Influenza Vaccination/Date Given: Yes Hx Pneumococcal Vaccination/Date Given: Yes - Review of Systems Constitutional: No Symptoms Eyes: No Symptoms Ears, Nose, & Throat: No Symptoms Respiratory: Dyspnea, Dyspnea on Exertion (SHAIKH) Cardiac: No Symptoms Abdominal/Gastrointestinal: No Symptoms Genitourinary Symptoms: No Symptoms Musculoskeletal: No Symptoms Skin: No Symptoms Neurological: Lethargy Psychological: No Symptoms Endocrine: No Symptoms Hematologic/Lymphatic: No Symptoms Immunological/Allergic: No Symptoms - Past Medical History Pertinent Past Medical History: Yes Neurological History: Paralysis, Peripheral Neuropathy, Stroke ENT History: Cataracts, Glaucoma, Macular Degeneration, Other Cardiac History: Coronary Artery Disease, High Cholesterol, Hypertension, Myocardial Infarction ([place]) Respiratory History: No Pertinent History Endocrine Medical History: Diabetes Type II, Hypoglycemia Musculoskeletal History: No Pertinent History GI Medical History: No Pertinent History History: Dialysis, Renal Disease Psycho-Social History: No Pertinent History Male Reproductive Disorders: No Pertinent History Other Medical History: legally blind bilaterateral eyes, 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, right upper arm fistula - Past Surgical History Past Surgical History: Yes Neuro Surgical History: No Pertinent History Cardiac: No Pertinent History Respiratory: No Pertinent History Gastrointestinal: No Pertinent History Genitourinary: No Pertinent History Musculoskeletal: No Pertinent History Male Surgical History: No Pertinent History Other Surgical History: fistula, amputation right part foot and toes - Social History Smoking Status: Never smoker Exposure to second hand smoke: Yes Drug Use: none Patient Lives Alone: No - Nursing Vital Signs Nursing Vital Signs: Initial Vital Signs Temperature 98.2 F 03/23/20 05:56 Pulse Rate 94 H 03/23/20 05:56 Respiratory Rate 18 03/23/20 05:56 Blood Pressure 75/34 03/23/20 05:56 O2 Sat by Pulse Oximetry 100 03/23/20 05:56 Pain Scale Pain Intensity 0 - Physical Exam General Appearance: severe distress Eye Exam: PERRL/EOMI Ears, Nose, Throat Exam: hearing grossly normal, normal ENT inspection, normal pharynx Neck Exam: normal inspection, No Brudzinski, No Kernig's Respiratory Exam: respiratory distress, other (Rales R base) Cardiovascular/Chest Exam: normal heart sounds, murmur (3/6 JOHN) Abdominal/Gastrointestinal Exam: soft, other (Obese/peritoneal catheter in place ) Rectal Exam: deferred Extremity Exam: swelling (1-2+ pretibial edema) Neurologic Exam: oriented x 3, other (Pt with intermittant lucidity), No motor deficits, No sensory deficit, No motor weakness Skin Exam: pale Lymphatic Exam: No adenopathy SpO2 Interpretation: O2 applied O2 Delivery: Nasal Cannula - Course Nursing assessment & vital signs reviewed: Yes EKG Interpreted by Me: RATE (NSR/prolonged QTc/ST-Twave changes/EKG#2NSR/Tall Rwave V2/New depression V2/Prolonged QTc) - Radiology Exams Chest X-ray Interpretation: Interpreted by me (Cardiomegaly wo overt fluid ovewrload) Ordered Tests: Active Orders 24 hr Category Date Time Status EKG-ER Only STAT Care 03/23/20 05:55 Active IV Insertion STAT Care 03/23/20 07:00 Active IV Insertion-2nd Peripheral STAT Care 03/23/20 07:00 Active ARTERIAL BLOOD GASES Stat Lab 03/23/20 06:17 Completed BLOOD CULTURE Stat Lab 03/23/20 06:40 Received CBC W DIFF Stat Lab 03/23/20 06:13 Completed CMP Stat Lab 03/23/20 06:13 Completed Lactic Acid Stat Lab 03/23/20 06:40 Completed Manual Differential NC Stat Lab 03/23/20 06:13 Completed TROPONIN Q3H Lab 03/23/20 06:00 Completed TROPONIN Q3H Lab 03/23/20 09:00 Ordered TROPONIN Q3H Lab 03/23/20 12:00 Ordered TROPONIN Q3H Lab 03/23/20 15:00 Ordered TROPONIN Q3H Lab 03/23/20 18:00 Ordered Medication Summary Discontinued Medications Generic Name Dose Route Start Last Admin Trade Name Francisq PRN Reason Stop Dose Admin Sodium Chloride 500 mls @ 999 mls/hr 03/23/20 06:01 03/23/20 07:08 Sodium Chloride 0.9% 1000 Ml IV 03/23/20 06:31 999 mls/hr .Q31M STA Administration Sodium Chloride Confirm 03/23/20 06:02 Sodium Chloride 0.9% 500 Ml Administered 03/23/20 06:03 Dose 500 mls @ ud IV .STK-MED ONE Sodium Chloride Confirm 03/23/20 06:38 Sodium Chloride 0.9% 1000 Ml Administered 03/23/20 06:39 Dose 1,000 mls @ ud .ROUTE .STK-MED ONE Piperacillin Sod/Tazobactam 100 mls @ 200 mls/hr 03/23/20 06:52 03/23/20 07: 07 Sod 3.375 gm/ Sodium Chloride IV 03/23/20 07:21 200 mls/hr STAT ONE Administration Sodium Chloride Confirm 03/23/20 06:57 Sodium Chloride 100ml Mini-Bag Plus Administered 03/23/20 06:58 Dose 100 mls @ ud IV .STK-MED ONE Ondansetron HCl Confirm 03/23/20 06:10 Zofran 4 Mg/2 Ml Vial Administered 03/23/20 06:11 Dose 4 mg .ROUTE .STK-MED ONE Piperacillin Sod/Tazobactam Sod Confirm 03/23/20 06:53 Zosyn 3.375 Gm Vial Administered 03/23/20 06:54 Dose 3.375 gm IV .STK-MED ONE Sodium Bicarbonate Confirm 03/23/20 06:08 Sodium Bicarbonate 50 Meq/50 Ml Abboject Administered 03/23/20 06:09 Dose 100 meq IV .STK-MED ONE Lab/Rad Data: Laboratory Result Diagrams 03/23/20 06:13 03/23/20 06:13 Laboratory Results 03/23/20 03/23/20 03/23/20 Range/Units 06:40 06:17 06:13 WBC (4.0-10.5) K/mm3 RBC (4.1-5.6) M/mm3 Hgb (12.5-18.0) gm/dl Hct (42-50) % MCV (78-100) fl MCH (26-32) pg MCHC (32-36) g/dl RDW (11.5-14.0) % Plt Count (150-450) K/mm3 MPV (7.5-11.0) fl Absolute Granulocytes (1.4-6.9) Segmented Neutrophils (36.-66.) % Band Neutrophils (0.0-2.0) % Lymphocytes (Manual) (24-44) % Monocytes (Manual) (0.0-12.0) % Eosinophils (Manual) (0.00-3.0) % Basophils (Manual) (0.0-1.0) % Metamyelocytes % Platelet Estimate (NORMAL) RBC Morphology Anisocytosis Puncture Site LEFT RADIAL pCO2 40 (35-45) mmHg pO2 33 L* (75-100) mmHg Base Excess 2.8 H (-2.0-2.0) O2 Saturation 56.8 L (94-100) g/dF ABG pH 7.44 (7.35-7.45) ABG HCO3 27.2 (22-28) ABG O2 Sat (Measured) 58.7 L (95-100) % Michelet Test NO A-a Gradient 630 a/A Ratio 0.05 Hemoglobin 11.1 Carboxyhemoglobin 2.8 (0.0-6.9) % THgb Methemoglobin 0.5 L (1.4-1.5) % Temperature 37.0 C POC O2 Flow Rate 100 % Sodium 138 (137-145) mmol/L Potassium 3.3 L 3.5 (3.5-5.1) mmol/L Chloride 97 L (98-107) mmol/L Carbon Dioxide 25 (22-30) mmol/L Anion Gap 19.9 H (5-15) MEQ/L BUN 52 H (9-20) mg/dL Creatinine 11.41 H (0.66-1.25) mg/dL Estimated GFR 4.9 ML/MIN Glucose 227 H (74-106) mg/dL Lactic Acid 2.3 H (0.4-2.0) Calcium 8.3 L (8.4-10.2) mg/dL Total Bilirubin 0.40 (0.2-1.3) mg/dL AST 21 (17-59) U/L ALT 14 (0-50) U/L Alkaline Phosphatase 37 L (38-126) U/L Troponin I (0.000-0.034) ng/mL Serum Total Protein 6.9 (6.3-8.2) g/dL Albumin 3.9 (3.5-5.0) g/dL 03/23/20 03/23/20 Range/Units 06:13 06:00 WBC 10.3 (4.0-10.5) K/mm3 RBC 3.51 L (4.1-5.6) M/mm3 Hgb 11.2 L (12.5-18.0) gm/dl Hct 35.1 L (42-50) % MCV 100.0 (78-100) fl MCH 31.9 (26-32) pg MCHC 31.9 L (32-36) g/dl RDW 13.7 (11.5-14.0) % Plt Count 249 (150-450) K/mm3 MPV 9.9 (7.5-11.0) fl Absolute Granulocytes 7.33 H (1.4-6.9) Segmented Neutrophils 62 (36.-66.) % Band Neutrophils 9 H (0.0-2.0) % Lymphocytes (Manual) 20 L (24-44) % Monocytes (Manual) 3 (0.0-12.0) % Eosinophils (Manual) 4 H (0.00-3.0) % Basophils (Manual) 1 (0.0-1.0) % Metamyelocytes 1 % Platelet Estimate NORMAL (NORMAL) RBC Morphology ABNORMAL Anisocytosis 1+ Puncture Site pCO2 (35-45) mmHg pO2 (75-100) mmHg Base Excess (-2.0-2.0) O2 Saturation (94-100) g/dF ABG pH (7.35-7.45) ABG HCO3 (22-28) ABG O2 Sat (Measured) (95-100) % Michelet Test A-a Gradient a/A Ratio Hemoglobin Carboxyhemoglobin (0.0-6.9) % THgb Methemoglobin (1.4-1.5) % Temperature C POC O2 Flow Rate % Sodium (137-145) mmol/L Potassium (3.5-5.1) mmol/L Chloride (98-107) mmol/L Carbon Dioxide (22-30) mmol/L Anion Gap (5-15) MEQ/L BUN (9-20) mg/dL Creatinine (0.66-1.25) mg/dL Estimated GFR ML/MIN Glucose (74-106) mg/dL Lactic Acid (0.4-2.0) Calcium (8.4-10.2) mg/dL Total Bilirubin (0.2-1.3) mg/dL AST (17-59) U/L ALT (0-50) U/L Alkaline Phosphatase (38-126) U/L Troponin I 0.075 H* (0.000-0.034) ng/mL Serum Total Protein (6.3-8.2) g/dL Albumin (3.5-5.0) g/dL - Progress Progress: improved Progress Note: 03/23/20 07:[address] Felix Pt hypotensive upon arrival/500ml NS bolus started/2nd IV site started/EKG NSR- prolonged LCc-RR-Tvmny changes/Levafed drip started due to continued hypotension w fluid bolus/2nd EKG w NSR-prolonged QTc-ST depression V2/NaHCO3 x2amps given in case of hyperkalemia/Lactic acid elevated at 2.3 and Troponin 0.075/Blood cultures done/Zosyn 3.375mg given IV/Systolic BP kept above 90sys w Levafed titration and fluids - Departure Departure Disposition: Transfer Clinical Impression: Sepsis associated hypotension Condition: Critical Critical Care Time: Yes Critical Care Time(excluding separately billable procedures): Critical 75-104 mins Referrals: INGRID TAMEZ MD [Primary Care Provider] -
[2020-03-23] MEDS ORDERED: Zosyn 3.375 GM Vial 3.375 GM in Sodium Chloride 100ML MINI-BAG PLUS 100 ML IV ONE (06:52)
[2020-03-23] MEDS ORDERED: Zosyn 3.375 GM Vial IV ONE (06:53)
[2020-03-23] MEDS ORDERED: Sodium Chloride 100ML MINI-BAG PLUS 100 ML IV ONE (06:57)
[2020-03-23 07:12] LABS: BAND 9 % (0.0-2.0); Basophil 1 % (0.0-1.0); Eosinophil 4 % (0.00-3.0); Lymphocytes 20 % (24-44); Metamyelocyte 1 %; Monocyte 3 % (0.0-12.0); Neutrophils 62 % (36.-66.); Total Cells Counted 100
[2020-03-23 07:14] LABS: ANISOCYTOSIS 1+; Platelet Estimate NORMAL (NORMAL)
[2020-03-23 07:15] LABS: Absolute Neutrophil Ct (ANC) 7.33 (1.4-6.9)
[2020-03-23 07:17] VITALS: O2SAT 100
[2020-03-23 07:42] VITALS: BP 86/54; PULSE 110
--- NOTE | 2020-03-23 09:20 | XRAY ---
Indication: Fluid overload, possible sepsis, and renal failure. Comparison: None Portable chest underinflated with minimal right base segmental atelectasis/scarring. No focal infiltrate, consolidation, or large effusion. Heart is borderline enlarged. Minimal aortic calcifications. Bony thorax intact with mild dextroscoliosis. Impression: Borderline cardiomegaly without CHF.
== END 2020-03-23 07:58 | disposition short-term general hospital (02) ==
LOC: ED 05:52
DX: A41.89 Other specified sepsis (principal); I95.89 Other hypotension; N18.6 End stage renal disease; Z99.2 Dependence on renal dialysis; R60.9 Edema, unspecified; R53.1 Weakness; Z79.899 Other long term (current) drug therapy; R06.00 Dyspnea, unspecified; I25.10 Atherosclerotic heart disease of native coronary artery without angina pectoris; E78.00 Pure hypercholesterolemia, unspecified; I10 Essential (primary) hypertension; I25.2 Old myocardial infarction; E11.9 Type 2 diabetes mellitus without complications
CPT/HCPCS: 36000; 36415; 36600; 71045; 80053; 82375; 82803; 83605; 84484; 85025; 87040; 93005; 96365; 99285; 99291; 99292; J2405

== ENCOUNTER 2020-06-13 14:51 | Emergency (ER) | payer MEDICARE ==
[2020-06-13 15:11] VITALS: O2SAT 99
[2020-06-13] MEDS ORDERED: Diflucan/Saline 0.2G/100ML PREMIX*** 100 ML IV ONE (15:13)
[2020-06-13] MEDS ORDERED: Nizoral CREAM TOP ONE (15:15)
--- NOTE | 2020-06-13 15:19 | ERPHSYRPT ---
- History of Present Illness Time Seen by Provider: 06/13/20 15:16 Source: patient, EMS Exam Limitations: no limitations Patient Subjective Stated Complaint: Rash Triage Nursing Assessment: Patient brought into ED via EMS and transferred to bed with assisst of 4. Patient A+O X3. Patient's skin pink, warm and dry. Patient complains of a rash on his buttocks. Patient states he is being treated outpatiently at home for infection to wound on left foot with antibiotics and steroids for one week. Patient states the rash to buttocks started one week ago. Patient's blood sugar also running high. Moist, red rash noted to entire buttock area. Patient complains of pain 5/10 to area. Physician History: Patient complains of a rash on his buttocks. Patient states he is being treated outpatient at home for infection to wound on left foot with antibiotics and steroids for one week. Patient states the rash to buttocks started one week ago. Patient's blood sugar also running high. Moist, red rash noted to entire buttock area. Patient complains of pain 5/10 to area. Timing/Duration: day(s) Quality: burning, itchy, painful Severity: moderate Location: genitalia, perirectal Possible Causes: no cause identified Associated Symptoms: rash Allergies/Adverse Reactions: No Known Drug Allergies Allergy (Verified 06/13/20 14:56) Home Medications: Carvedilol 12.5 mg [Coreg 12.5 mg] 12.5 mg PO BID 07/17/19 [History] Clopidogrel Bisulfate [Clopidogrel] 75 mg PO DAILY 07/17/19 [History] Dorzolamide HCl/Timolol Maleat [Dorzolamide-Timolol Eye Drops] 1 drop INTRAOP BID 07/17/19 [History] Folic Acid 1 mg PO DAILY 07/17/19 [History] Lubiprostone [Amitiza] 1 cap PO DAILY 07/17/19 [History] Prednisolone Acetate OPHTH [Pred-Forte 1% Ophthalmic] 1 drop INTRAOP BID 07/17/19 [History] Sevelamer Carbonate [Renvela] 800 mg PO TID 07/17/19 [History] Tamsulosin HCl 0.4 mg PO HS 07/17/19 [History] Aspirin EC 81 mg [Ecotrin 81 mg] 81 mg PO DAILY 03/23/20 [History] Atorvastatin Calcium 80 mg PO DAILY 03/23/20 [History] Meclizine HCl 25 mg [Antivert 25 mg] 25 mg PO Q8H PRN PRN 03/23/20 [History] lisinopriL [Lisinopril] 5 mg PO DAILY 03/23/20 [History] Hx Tetanus, Diphtheria Vaccination/Date Given: Yes Hx Influenza Vaccination/Date Given: Yes Hx Pneumococcal Vaccination/Date Given: Yes Immunizations Up to Date: Yes Travel Risk - International Travel Have you traveled outside of the country in past 3 weeks: No - Coronavirus Screening Are you exhibiting any of the following symptoms?: No Close contact with a COVID-19 positive Pt in past 14-21 Days: No - Review of Systems Constitutional: No Fever, No Chills Eyes: No Symptoms Ears, Nose, & Throat: No Symptoms Respiratory: No Cough, No Dyspnea Cardiac: No Chest Pain, No Edema, No Syncope Abdominal/Gastrointestinal: No Abdominal Pain, No Nausea, No Vomiting, No Diarrhea Genitourinary Symptoms: No Dysuria Musculoskeletal: No Back Pain, No Neck Pain Skin: Rash, Dryness Neurological: No Dizziness, No Focal Weakness, No Sensory Changes Psychological: No Symptoms Endocrine: No Symptoms All Other Systems: Reviewed and Negative - Past Medical History Pertinent Past Medical History: Yes Neurological History: Paralysis, Peripheral Neuropathy, Stroke ENT History: Cataracts, Glaucoma, Macular Degeneration, Other Cardiac History: Coronary Artery Disease, High Cholesterol, Hypertension, Myocardial Infarction ([place]) Respiratory History: No Pertinent History Endocrine Medical History: Diabetes Type II, Hypoglycemia Musculoskeletal History: No Pertinent History GI Medical History: No Pertinent History History: Dialysis, Renal Disease Psycho-Social History: No Pertinent History Male Reproductive Disorders: No Pertinent History Other Medical History: legally blind bilaterateral eyes, 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, right upper arm fistula - Past Surgical History Past Surgical History: Yes Neuro Surgical History: No Pertinent History Cardiac: No Pertinent History Respiratory: No Pertinent History Gastrointestinal: No Pertinent History Genitourinary: No Pertinent History Musculoskeletal: No Pertinent History Male Surgical History: No Pertinent History Other Surgical History: fistula, amputation right part foot and toes - Social History Smoking Status: Never smoker Exposure to second hand smoke: Yes Drug Use: none Patient Lives Alone: No - Nursing Vital Signs Nursing Vital Signs: Initial Vital Signs Temperature 98.2 F 06/13/20 14:57 Pulse Rate 100 H 06/13/20 14:57 Respiratory Rate 18 06/13/20 14:57 Blood Pressure 107/48 06/13/20 14:57 O2 Sat by Pulse Oximetry 99 06/13/20 14:57 Pain Scale Pain Intensity 5 - Physical Exam General Appearance: no apparent distress, alert Eye Exam: PERRL/EOMI, eyes nml inspection Ears, Nose, Throat Exam: normal ENT inspection, pharynx normal, moist mucous membranes Neck Exam: normal inspection, non-tender, supple, full range of motion Respiratory Exam: normal breath sounds, lungs clear, No respiratory distress Cardiovascular Exam: regular rate/rhythm, normal heart sounds Gastrointestinal/Abdomen Exam: soft, mass, No tenderness Back Exam: normal inspection, normal range of motion, No CVA tenderness, No vertebral tenderness Extremity Exam: normal inspection, normal range of motion Neurologic Exam: alert, oriented x 3, cooperative, normal mood/affect, sensation nml, No motor deficits Skin Exam: normal color, warm, dry, rash SpO2: 99 - Course Nursing assessment & vital signs reviewed: Yes Ordered Tests: Active Orders 24 hr Category Date Time Status CBC W DIFF Stat Lab 06/13/20 15:30 Received CMP Stat Lab 06/13/20 15:24 Completed Lactic Acid Urgent Lab 06/13/20 15:10 Completed Medication Summary Discontinued Medications Generic Name Dose Route Start Last Admin Trade Name Freq PRN Reason Stop Dose Admin Fluconazole 100 mls @ 100 mls/hr 06/13/20 15:13 06/13/20 15:24 Diflucan/Saline 0.2g/100ml Premix IV 06/13/20 16:12 100 mls/hr STAT ONE Administration Ketoconazole 10 gm 06/13/20 15:15 06/13/20 15:27 Nizoral Cream TOP 06/13/20 15:16 10 gm 1XONLY ONE Administration Lab/Rad Data: Laboratory Result Diagrams 06/13/20 15:24 Laboratory Results 06/13/20 06/13/20 Range/Units 15:24 15:10 Sodium 133 L (137-145) mmol/L Potassium 3.1 L (3.5-5.1) mmol/L Chloride 95 L (98-107) mmol/L Carbon Dioxide 25 (22-30) mmol/L Anion Gap 15.6 H (5-15) MEQ/L BUN 64 H (9-20) mg/dL Creatinine 9.01 H (0.66-1.25) mg/dL Estimated GFR 6.4 ML/MIN Glucose 355 H (74-106) mg/dL Lactic Acid 1.5 (0.4-2.0) Calcium 6.9 L (8.4-10.2) mg/dL Total Bilirubin 1.00 (0.2-1.3) mg/dL AST 26 (17-59) U/L ALT 14 (0-50) U/L Alkaline Phosphatase 43 (38-126) U/L Serum Total Protein 5.6 L (6.3-8.2) g/dL Albumin 3.2 L (3.5-5.0) g/dL - Progress Progress: unchanged Counseled pt/family regarding: lab results, diagnosis, need for follow-up - Departure Departure Disposition: Home Clinical Impression: Fungal dermatosis, Type 2 diabetes with nephropathy Condition: Stable Critical Care Time: No [facility] [Primary Care Provider] - Instructions: Fungal Skin Rash (DC) Additional Instructions: Discharge/Care Plan NAHOMY WATKINS was seen on 06/13/20 in the Emergency Room. The patient was counseled regarding Diagnosis,Lab results, Imaging studies, need for follow up and when to return to the Emergency Room. Prescriptions given: Discharge Note I have spoken with the patient and/or caregivers. I have explained the patient's condition, diagnosis and treatment plan based on the information available to me at this time. I have answered the patient's and/or caregiver's questions and addressed any concerns. The patient and/or caregivers have as good understanding of the patient's diagnosis, condition and treatment plan as can be expected at this point. The vital signs have been stable. The patient's condition is stable and appropriate for discharge from the emergency department. The patient will pursue further outpatient evaluation with the primary care physician or other designated or consulting physician as outlined in the discharge instructions. The patient and/or caregivers are agreeable to this plan of care and follow-up instructions have been explained in detail. The patient and/or caregivers have received these instruction. The patient/and or caregivers are aware that any significant change in condition or worsening of symptoms should prompt an immediate return to this or the closest emergency department or call 911. NAHOMY WATKINS was seen on 06/13/20 n the Emergency Room. At that time you were treated for an emergent condition, during your visit Laboratory, Radiology and/or other procedures may have been ordered. It is very important that you follow-up with your Primary Care Physician [facility] within the next 24-48 hours to review your Emergency Room visit and the final results of testing that was ordered. Some test results such as Urine Cultures, Blood Cultures, and other cultures if ordered will not be finalized for 24-48 hours. If you do not have a Primary Care Provider please call the medical records depa rtment at [phone] ext [phone] to obtain a copy of your results or you may sign into our patient portal to obtain these results by visiting [email or web address] and completing the following steps: 1. Click on the Patient Portal link 2. Click the Patient Self Enrollment Link to complete the enrollment form and entering your 3. Once the enrollment form is completed you will receive an email with a temporary ID and password at the email address you provided. 4. Next choose a user name and password. Your user name must be at least 4 characters long and your password must be at least 4 characters long. 5. Choose a security question from the list and provide your answer to the question. If you already have signed into the Health Portal you may access your Health Care Information 07/05 by the following steps: 1. Login to our website @ [email or web address] 2. Enter your original user name and password. FAQS The [facility] Health Portal is an online tool that contains your Lab Results, Radiology Reports, Visit History, Discharge Instructions and Health Summary Lab and Radiology Results will not be available for 72 hours on the portal. The Portal is a secure site, passwords are encryted and URLs are re-written so they cannot be copied and pasted. You and authorized family members are the only ones who can access your Portal. Also there is a timeout feature that protects your information if you leave the Portal page open. If you have technical difficulty please use the Contact Us link on the page this will allow you to submit any questions you have regarding the Portal or you may contact the Medical Record Department at [phone] ext [phone]. Prescriptions: Fluconazole 100 mg [Diflucan 100 MG] 100 mg PO DAILY #10 tablet Ketoconazole Cream [Nizoral CREAM] 60 gm TP DAILY #60 tube
[2020-06-13 16:03] VITALS: BP 137/44; PULSE 52
[2020-06-13 16:07] LABS: ALBUMIN 3.2 g/dL (3.5-5.0); ANION GAP 15.6 MEQ/L (5-15); Calcium 6.9 mg/dL (8.4-10.2); Potassium 3.1 mmol/L (3.5-5.1); Total Protein 5.6 g/dL (6.3-8.2)
[2020-06-13 16:13] LABS: Creatinine 1 9.01 mg/dL (0.66-1.25); EST GLOMERULAR FILTRATION RATE 6.4 ML/MIN
[2020-06-13 16:39] LABS: Hematocrit 22.8 % (42-50); Mean Cell Volume 99.1 fl (78-100); Mean Corpuscular Hemoglobin 34.8 pg (26-32); Mean Corpuscular Hgb Concent. 35.1 g/dl (32-36); Mean Platelet Volume 9.7 fl (7.5-11.0); Platelet Count 287 K/mm3 (150-450); Red Cell Distribution Width 20.1 % (11.5-14.0); White Blood Count 11.4 K/mm3 (4.0-10.5)
[2020-06-13 18:09] LABS: Eosinophil 1 % (0.00-3.0); Lymphocytes 2 % (24-44); Monocyte 1 % (0.0-12.0); Neutrophils 96 % (36.-66.); Total Cells Counted 100
[2020-06-13 18:10] LABS: Platelet Estimate NORMAL (NORMAL)
== END 2020-06-13 17:07 | disposition home or self-care (01) ==
LOC: ED 14:51
DX: B99.8 Other infectious disease (principal)
CPT/HCPCS: 36415; 80053; 83605; 85025; 99284; J1450; J1642; A9270-GY

== ENCOUNTER 2020-07-27 20:45 | Emergency (ER) | payer MEDICARE ==
--- NOTE | 2020-07-27 21:21 | ERPHSYRPT ---
- History of Present Illness Time Seen by Provider: 07/27/20 20:55 Source: patient Exam Limitations: no limitations Physician History: Patient is a 60-year-old male morbidly obese, diabetic, end-stage renal disease on peritoneal dialysis presents to our ED for evaluation of lethargy which believes is due to dehydration. Symptoms started this morning and have been progressive. By became concerned and called 911. Patient arrived via EMS. No pain. Patient is arousable. No neck pain. No photophobia. No meningismus. No trauma. Symptoms are progressive. Symptoms are moderate in intensity. No specific worsening improving factors. HPI somewhat limited due to his mental state. Patient voices no other complaints concerns at this time. Timing/Duration: today Severity: moderate Modifying Factors: Improves With: nothing Associated Symptoms: No nausea, No vomiting, No abdominal pain, No shortness of breath, No heartburn, No diaphoresis, No cough, No chills, No chest pain, No fever, No headaches, No loss of appetite, No malaise, No rash, No syncope, No seizure, No weakness Allergies/Adverse Reactions: No Known Drug Allergies Allergy (Verified 07/27/20 21:37) Home Medications: Folic Acid 1 mg PO DAILY 07/17/19 [History] Sevelamer Carbonate [Renvela] 1,600 mg PO TID 07/17/19 [History] Tamsulosin HCl 0.4 mg PO HS 07/17/19 [History] Aspirin EC 81 mg [Ecotrin 81 mg] 81 mg PO DAILY 03/23/20 [History] Meclizine HCl 25 mg [Antivert 25 mg] 25 mg PO Q8H PRN PRN 03/23/20 [History] Apixaban [Eliquis] 5 mg PO BID 07/27/20 [History] Docusate Sodium 100 mg [Colace 100 MG] 200 mg PO DAILY PRN PRN 07/27/20 [History] Evolocumab [Repatha Syringe] 140 ml SQ UD 07/27/20 [History] Fenofibrate 160 mg PO DAILY 07/27/20 [History] Insulin Lispro [Humalog] 1 units SQ Q6H PRN PRN 07/27/20 [History] Ketoconazole Cream [Nizoral CREAM] 60 gm TP DAILY PRN PRN 07/27/20 [History] Midodrine HCl 5 mg PO TID 07/27/20 [History] bisacodyL [Bisacodyl] 5 mg PO DAILY 07/27/20 [History] Hx Tetanus, Diphtheria Vaccination/Date Given: Yes Hx Influenza Vaccination/Date Given: Yes Hx Pneumococcal Vaccination/Date Given: Yes - Review of Systems Constitutional: No Symptoms, No Fever, No Chills Eyes: No Symptoms Ears, Nose, & Throat: No Symptoms Respiratory: No Symptoms, No Cough, No Dyspnea Cardiac: No Symptoms, No Chest Pain, No Edema, No Syncope Abdominal/Gastrointestinal: No Symptoms, No Abdominal Pain, No Nausea, No Vomiting, No Diarrhea Genitourinary Symptoms: No Symptoms, No Dysuria Musculoskeletal: No Symptoms, No Back Pain, No Neck Pain Skin: No Symptoms, No Rash Neurological: No Symptoms, No Dizziness, No Focal Weakness, No Sensory Changes Psychological: No Symptoms Endocrine: No Symptoms Hematologic/Lymphatic: No Symptoms Immunological/Allergic: No Symptoms All Other Systems: Unable due to condition - Past Medical History Pertinent Past Medical History: Yes Neurological History: Paralysis, Peripheral Neuropathy, Stroke ENT History: Cataracts, Glaucoma, Macular Degeneration, Other Cardiac History: Coronary Artery Disease, High Cholesterol, Hypertension, Myocardial Infarction (ID) Respiratory History: No Pertinent History Endocrine Medical History: Diabetes Type II, Hypoglycemia Musculoskeletal History: No Pertinent History GI Medical History: No Pertinent History History: Dialysis, Renal Disease Psycho-Social History: No Pertinent History Male Reproductive Disorders: No Pertinent History Other Medical History: legally blind bilaterateral eyes, 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, right upper arm fistula - Past Surgical History Past Surgical History: Yes Neuro Surgical History: No Pertinent History Cardiac: No Pertinent History Respiratory: No Pertinent History Gastrointestinal: No Pertinent History Genitourinary: No Pertinent History Musculoskeletal: No Pertinent History Male Surgical History: No Pertinent History Other Surgical History: fistula, amputation right part foot and toes - Social History Smoking Status: Never smoker Exposure to second hand smoke: Yes Drug Use: none Patient Lives Alone: No - Nursing Vital Signs Nursing Vital Signs: Initial Vital Signs Temperature 100.1 F 07/27/20 20:53 Pulse Rate 85 07/27/20 20:53 Respiratory Rate 20 07/27/20 20:53 Blood Pressure 76/54 07/27/20 20:53 O2 Sat by Pulse Oximetry 92 L 07/27/20 20:53 Pain Scale Pain Intensity 0 - Physical Exam General Appearance: no apparent distress, lethargy Eye Exam: PERRL/EOMI, eyes nml inspection, other (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.) Ears, Nose, Throat Exam: normal ENT inspection, TMs normal, pharynx normal, moist mucous membranes Neck Exam: normal inspection, non-tender, supple, full range of motion Respiratory Exam: normal breath sounds, lungs clear, No respiratory distress Cardiovascular Exam: regular rate/rhythm, normal heart sounds, normal peripheral pulses Gastrointestinal/Abdomen Exam: soft, normal bowel sounds, No tenderness, No mass Back Exam: normal inspection, normal range of motion, No CVA tenderness, No vertebral tenderness Extremity Exam: normal inspection, normal range of motion, pelvis stable Neurologic Exam: cooperative, normal mood/affect, nml cerebellar function, sensation nml, No motor deficits Skin Exam: normal color, warm, dry, No rash Lymphatic Exam: No adenopathy SpO2 Interpretation: normal SpO2: 92 - Course Nursing assessment & vital signs reviewed: Yes EKG Interpreted by Me: RATE, Sinus Tach, NORMAL AXIS, NORMAL INTERVALS - Radiology Exams Chest X-ray Interpretation: Teleradiologist Report (Right lower lobe atelectasis versus minimal infiltrate.) - CT Exams Head CT Interpretation: Tele-radiologist Report (No comps. Atrophy and degenerative micro-ischemia. Small focus of old infarct right occipital lobe. Smaller focus of old infarct left cerebellum. Nothing acute.) Ordered Tests: Medication Summary Discontinued Medications Generic Name Dose Route Start Last Admin Trade Name Freq PRN Reason Stop Dose Admin Piperacillin Sod/Tazobactam 100 mls @ 200 mls/hr 07/27/20 22:56 Sod 3.375 gm/ Sodium Chloride IV 07/27/20 23:25 STAT ONE Vancomycin HCl 1 gm in 200 mls @ 125 mls/hr 07/27/20 23:00 07/27/20 23:23 Vancomycin 1 Gram/200 Ml Bag IV 08/26/20 22:59 125 mg/hr Q24H JHON 25 mls/hr Administration Sodium Chloride 500 mls @ 500 mls/hr 07/27/20 23:13 07/27/20 23:18 Sodium Chloride 0.9% 500 Ml IV 07/28/20 00:12 500 mls/hr .Q1H ONE Administration Sodium Chloride Confirm 07/27/20 23:16 Sodium Chloride 0.9% 500 Ml Administered 07/27/20 23:17 Dose 500 mls @ ud IV .STK-MED ONE Vancomycin HCl Confirm 07/27/20 22:58 Vancomycin 1 Gram/200 Ml Bag Administered 07/27/20 22:59 Dose 1 gm in 200 mls @ ud IV .STK-MED ONE Lab/Rad Data: Laboratory Result Diagrams 07/27/20 21:20 07/27/20 21:33 Laboratory Results 07/27/20 07/27/20 07/27/20 Range/Units 21:33 21:33 21:33 WBC (4.0-10.5) K/mm3 RBC (4.1-5.6) M/mm3 Hgb (12.5-18.0) gm/dl Hct (42-50) % MCV (78-100) fl MCH (26-32) pg MCHC (32-36) g/dl RDW (11.5-14.0) % Plt Count (150-450) K/mm3 MPV (7.5-11.0) fl Segmented Neutrophils (36.-66.) % Lymphocytes (Manual) (24-44) % Monocytes (Manual) (0.0-12.0) % Toxic Granulation Platelet Estimate (NORMAL) RBC Morphology Polychromasia Anisocytosis Macrocytosis Puncture Site pCO2 (35-45) mmHg pO2 (75-100) mmHg Base Excess (-2.0-2.0) O2 Saturation (94-100) g/dF ABG pH (7.35-7.45) ABG HCO3 (22-28) ABG O2 Sat (Measured) (95-100) % Michelet Test A-a Gradient a/A Ratio Hemoglobin Carboxyhemoglobin (0.0-6.9) % THgb Methemoglobin (1.4-1.5) % Potassium (3.5-5.1) Temperature C POC O2 Flow Rate % Sodium (137-145) mmol/L Chloride (98-107) mmol/L Carbon Dioxide (22-30) mmol/L Anion Gap (5-15) MEQ/L BUN (9-20) mg/dL Creatinine (0.66-1.25) mg/dL Estimated GFR ML/MIN Glucose (74-106) mg/dL Lactic Acid (0.4-2.0) Calcium (8.4-10.2) mg/dL Total Bilirubin (0.2-1.3) mg/dL AST (17-59) U/L ALT (0-50) U/L Alkaline Phosphatase (38-126) U/L Creatine Kinase (55-170) U/L Troponin I 0.143 H* (0.000-0.034) ng/mL Serum Total Protein (6.3-8.2) g/dL Albumin (3.5-5.0) g/dL Procalcitonin 3.110 H* (0.030-0.080) ng/mL Urine Color (YELLOW) Urine Appearance (CLEAR) Urine pH (5-6) Ur Specific [place] (1.005-1.025) Urine Protein (Negative) Urine Ketones (NEGATIVE) Urine Blood (0-5) Андрей/ul Urine Nitrite (NEGATIVE) Urine Bilirubin (NEGATIVE) Urine Urobilinogen (0-1) mg/dL Ur Leukocyte Esterase (NEGATIVE) Urine WBC (Auto) (0-5) /HPF Urine RBC (Auto) (0-2) /HPF U Epithel Cells (Auto) (FEW) /HPF Urine Bacteria (Auto) (NEGATIVE) /HPF Urine Culture Reflexed (NO) Urine Glucose (NEGATIVE) mg/dL Influenza Type A Ag NEGATIVE (NEGATIVE) Influenza Type B Ag NEGATIVE (NEGATIVE) RSV (PCR) NEGATIVE (Negative) SARS-CoV-2 (PCR) NEGATIVE (NEGATIVE) 07/27/20 07/27/20 07/27/20 Range/Units 21:33 21:26 21:20 WBC (4.0-10.5) K/mm3 RBC (4.1-5.6) M/mm3 Hgb (12.5-18.0) gm/dl Hct (42-50) % MCV (78-100) fl MCH (26-32) pg MCHC (32-36) g/dl RDW (11.5-14.0) % Plt Count (150-450) K/mm3 MPV (7.5-11.0) fl Segmented Neutrophils (36.-66.) % Lymphocytes (Manual) (24-44) % Monocytes (Manual) (0.0-12.0) % Toxic Granulation Platelet Estimate (NORMAL) RBC Morphology Polychromasia Anisocytosis Macrocytosis Puncture Site RIGHT RADIAL pCO2 28 L (35-45) mmHg pO2 134 H* (75-100) mmHg Base Excess 2.3 H (-2.0-2.0) O2 Saturation 95.1 (94-100) g/dF ABG pH 7.54 H (7.35-7.45) ABG HCO3 23.9 (22-28) ABG O2 Sat (Measured) 99.6 (95-100) % Michelet Test YES A-a Gradient 31 a/A Ratio 0.81 Hemoglobin 10.7 Carboxyhemoglobin 3.8 (0.0-6.9) % THgb Methemoglobin 0.7 L (1.4-1.5) % Potassium 4.2 4.0 (3.5-5.1) Temperature 37.0 C POC O2 Flow Rate 28 % Sodium 133 L (137-145) mmol/L Chloride 92 L (98-107) mmol/L Carbon Dioxide 25 (22-30) mmol/L Anion Gap 20.2 H (5-15) MEQ/L BUN 58 H (9-20) mg/dL Creatinine 11.66 H (0.66-1.25) mg/dL Estimated GFR 4.8 ML/MIN Glucose 163 H (74-106) mg/dL Lactic Acid 2.1 H (0.4-2.0) Calcium 8.9 (8.4-10.2) mg/dL Total Bilirubin 0.50 (0.2-1.3) mg/dL AST 22 (17-59) U/L ALT 14 (0-50) U/L Alkaline Phosphatase 38 (38-126) U/L Creatine Kinase 25 L (55-170) U/L Troponin I (0.000-0.034) ng/mL Serum Total Protein 7.4 (6.3-8.2) g/dL Albumin 4.2 (3.5-5.0) g/dL Procalcitonin (0.030-0.080) ng/mL Urine Color MICHELE (YELLOW) Urine Appearance SLIGHTLY CLOUDY (CLEAR) Urine pH 5.0 (5-6) Ur Specific [place] 1.015 (1.005-1.025) Urine Protein >=500 (Negative) Urine Ketones NEGATIVE (NEGATIVE) Urine Blood NEGATIVE (0-5) Андрей/ul Urine Nitrite NEGATIVE (NEGATIVE) Urine Bilirubin NEGATIVE (NEGATIVE) Urine Urobilinogen NEGATIVE (0-1) mg/dL Ur Leukocyte Esterase NEGATIVE (NEGATIVE) Urine WBC (Auto) 6-10 (0-5) /HPF Urine RBC (Auto) NONE (0-2) /HPF U Epithel Cells (Auto) NONE (FEW) /HPF Urine Bacteria (Auto) NONE (NEGATIVE) /HPF Urine Culture Reflexed NO (NO) Urine Glucose >=500 (NEGATIVE) mg/dL Influenza Type A Ag (NEGATIVE) Influenza Type B Ag (NEGATIVE) RSV (PCR) (Negative) SARS-CoV-2 (PCR) (NEGATIVE) 07/27/20 Range/Units 21:20 WBC 12.7 H (4.0-10.5) K/mm3 RBC 3.29 L (4.1-5.6) M/mm3 Hgb 10.7 L (12.5-18.0) gm/dl Hct 34.3 L (42-50) % MCV 104.3 H (78-100) fl MCH 32.5 H (26-32) pg MCHC 31.2 L (32-36) g/dl RDW 17.3 H (11.5-14.0) % Plt Count 385 (150-450) K/mm3 MPV 9.5 (7.5-11.0) fl Segmented Neutrophils 90 H (36.-66.) % Lymphocytes (Manual) 6 L (24-44) % Monocytes (Manual) 4 (0.0-12.0) % Toxic Granulation 1+ Platelet Estimate NORMAL (NORMAL) RBC Morphology ABNORMAL Polychromasia 1+ Anisocytosis 2+ Macrocytosis 1+ Puncture Site pCO2 (35-45) mmHg pO2 (75-100) mmHg Base Excess (-2.0-2.0) O2 Saturation (94-100) g/dF ABG pH (7.35-7.45) ABG HCO3 (22-28) ABG O2 Sat (Measured) (95-100) % Michelet Test A-a Gradient a/A Ratio Hemoglobin Carboxyhemoglobin (0.0-6.9) % THgb Methemoglobin (1.4-1.5) % Potassium (3.5-5.1) Temperature C POC O2 Flow Rate % Sodium (137-145) mmol/L Chloride (98-107) mmol/L Carbon Dioxide (22-30) mmol/L Anion Gap (5-15) MEQ/L BUN (9-20) mg/dL Creatinine (0.66-1.25) mg/dL Estimated GFR ML/MIN Glucose (74-106) mg/dL Lactic Acid (0.4-2.0) Calcium (8.4-10.2) mg/dL Total Bilirubin (0.2-1.3) mg/dL AST (17-59) U/L ALT (0-50) U/L Alkaline Phosphatase (38-126) U/L Creatine Kinase (55-170) U/L Troponin I (0.000-0.034) ng/mL Serum Total Protein (6.3-8.2) g/dL Albumin (3.5-5.0) g/dL Procalcitonin (0.030-0.080) ng/mL Urine Color (YELLOW) Urine Appearance (CLEAR) Urine pH (5-6) Ur Specific [place] (1.005-1.025) Urine Protein (Negative) Urine Ketones (NEGATIVE) Urine Blood (0-5) Андрей/ul Urine Nitrite (NEGATIVE) Urine Bilirubin (NEGATIVE) Urine Urobilinogen (0-1) mg/dL Ur Leukocyte Esterase (NEGATIVE) Urine WBC (Auto) (0-5) /HPF Urine RBC (Auto) (0-2) /HPF U Epithel Cells (Auto) (FEW) /HPF Urine Bacteria (Auto) (NEGATIVE) /HPF Urine Culture Reflexed (NO) Urine Glucose (NEGATIVE) mg/dL Influenza Type A Ag (NEGATIVE) Influenza Type B Ag (NEGATIVE) RSV (PCR) (Negative) SARS-CoV-2 (PCR) (NEGATIVE) - Progress Progress: improved Progress Note: 07/27/20 23:21 Patient reassessed. Mental status much improved. Patient alert and oriented x3 at this time. Work-up reveals an elevated anion gap likely due to uremic state. Chest x-ray reveals a right lower lobe infiltrate versus atelectasis. In light of patient's leukocytosis marginally elevated lactic acidosis and diminished breath sounds we will treat for suspected pneumonia. Vancomycin Zosyn administered. Troponin elevated however patient has end-stage renal disease on peritoneal dialysis. Elevated troponin likely due to this condition. EKG negative for STEMI/acute ischemia. Patient does produce urine. There is a mild pyuria in his urine along with glucosuria. The antibiotics will cover potential UTI. 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 Plan of care discussed with patient. He agrees to transfer to [facility] for further evaluation and treatment. Patient significant other updated. Case discussed with Dr. Victoria ED physician at [facility] who accepts transfer. Counseled pt/family regarding: lab results, diagnosis, rad results - Departure Departure Disposition: Transfer Clinical Impression: Lethargy, Dehydration, Leukocytosis, Megaloblastic anemia, High anion gap metabolic acidosis, ESRD (end stage renal disease), Elevated troponin, Proteinuria, Pyuria, Uremia, Pneumonia Condition: Stable Critical Care Time: No Referrals: INGRID TAMEZ MD [Primary Care Provider] -
[2020-07-27 21:37] LABS: A-aADO2 31; ABG HEMOGLOBIN 10.7; ABG SITE RIGHT RADIAL; ALLEN TEST OK? YES; ARTERIAL BLD GAS O2 SATURATION 99.6 % (95-100); ARTERIAL BLOOD GAS BASE EXCESS 2.3 (-2.0-2.0); ARTERIAL BLOOD GAS FIO2 28 %; ARTERIAL BLOOD GAS PCO2 28 mmHg (35-45); ARTERIAL BLOOD GAS PO2 134 mmHg (75-100); ARTERIAL BLOOD GAS pH 7.54 (7.35-7.45); CARBOXYHEMOGLOBIN 3.8 % THgb (0.0-6.9); HCO3- 23.9 (22-28); HGB O2 SAT 95.1 g/dF (94-100); Lactic Acid 2.1 (0.4-2.0); Methhemoglobin 0.7 % (1.4-1.5); paO2 pAO1 0.81
[2020-07-27 21:42] LABS: Hematocrit 34.3 % (42-50); Hemoglobin 10.7 gm/dl (12.5-18.0); Mean Cell Volume 104.3 fl (78-100); Mean Corpuscular Hemoglobin 32.5 pg (26-32); Mean Corpuscular Hgb Concent. 31.2 g/dl (32-36); Mean Platelet Volume 9.5 fl (7.5-11.0); Platelet Count 385 K/mm3 (150-450); Red Blood Count 3.29 M/mm3 (4.1-5.6); Red Cell Distribution Width 17.3 % (11.5-14.0); White Blood Count 12.7 K/mm3 (4.0-10.5)
[2020-07-27 21:51] LABS: Appearance SLIGHTLY CLOUDY (CLEAR); Bilirubin NEGATIVE (NEGATIVE); Blood NEGATIVE Ery/ul (0-5); Glucose >=500 mg/dL (NEGATIVE); Ketones NEGATIVE (NEGATIVE); Leukocyte Esterase NEGATIVE (NEGATIVE); Nitrite NEGATIVE (NEGATIVE); Protein,Urine Dip >=500 (Negative); Specific Gravity 1.015 (1.005-1.025); Urobilinogen NEGATIVE mg/dL (0-1)
[2020-07-27 21:56] LABS: ALBUMIN 4.2 g/dL (3.5-5.0); ANION GAP 20.2 MEQ/L (5-15); BILIRUBIN,TOTAL 0.5 mg/dL (0.2-1.3); Calcium 8.9 mg/dL (8.4-10.2); Creatinine 1 11.66 mg/dL (0.66-1.25); EST GLOMERULAR FILTRATION RATE 4.8 ML/MIN; Potassium 4.2 mmol/L (3.5-5.1); Total Protein 7.4 g/dL (6.3-8.2)
[2020-07-27 22:12] LABS: INFLUENZA A NEGATIVE (NEGATIVE); INFLUENZA B NEGATIVE (NEGATIVE); RESPIRATORY SYNCTIAL VIRUS NEGATIVE (Negative)
[2020-07-27] MEDS ORDERED: Zosyn 3.375 GM Vial 3.375 GM in Sodium Chloride 100ML MINI-BAG PLUS 100 ML IV ONE (22:56)
[2020-07-27] MEDS ORDERED: VANCOMYCIN 1 GRAM/200 ML BAG 1 GM/200 ML PIGGYBACK IV ONE (22:58)
[2020-07-27] MEDS ORDERED: VANCOMYCIN 1 GRAM/200 ML BAG 1 GM/200 ML PIGGYBACK IV SCH (23:00)
[2020-07-27] MEDS ORDERED: Sodium Chloride 0.9% 500 ML 500 ML IV ONE ×2 (23:13→23:16)
[2020-07-28 00:07] LABS: Lymphocytes 6 % (24-44); Monocyte 4 % (0.0-12.0); Neutrophils 90 % (36.-66.); Platelet Estimate NORMAL (NORMAL); Total Cells Counted 100
[2020-07-28 00:08] LABS: ANISOCYTOSIS 2+; Macrocytosis 1+; Polychromasia 1+; Toxic Granulation 1+
[2020-07-28 00:47] VITALS: BP 104/60; PULSE 105
--- NOTE | 2020-07-28 08:34 | XRAY ---
Indication: TIA. Stroke. Unable to move or speak. Multiple contiguous axial images obtained through the head without contrast. Comparison: None Age-appropriate global atrophy and mild periventricular degenerative micro-ischemia bilaterally. Small focus old infarct right occipital lobe with smaller old infarct left cerebellum. No acute intracranial hemorrhage, hydrocephalus, or mass effect. Fourth ventricle is midline. Bony calvarium intact. Visualized paranasal sinuses and mastoid air cells are clear. Impression: Nonacute senile brain with small old infarcts as detailed.
--- NOTE | 2020-07-28 08:37 | XRAY ---
Indication: Pneumonia. Comparison: March 23, 2020. Portable chest unchanged again with minimal right base infiltrate/atelectasis and borderline cardiomegaly. No new cardiopulmonary abnormalities. Bony thorax intact. Comment: Preliminary interpretation was made by [facility]. No critical discrepancy.
[2020-07-30 06:53] VITALS: O2SAT 92
== END 2020-07-28 00:20 | disposition short-term general hospital (02) ==
LOC: ED 20:45
DX: R53.83 Other fatigue (principal); E86.0 Dehydration; D72.829 Elevated white blood cell count, unspecified; D53.1 Other megaloblastic anemias, not elsewhere classified; E87.2 Acidosis; I12.0 Hypertensive chronic kidney disease with stage 5 chronic kidney disease or end stage renal disease; N18.6 End stage renal disease; Z79.899 Other long term (current) drug therapy
CPT/HCPCS: 36000; 36415; 36600; 51702; 70450; 71045; 80053; 81001; 82375; 82550; 82803; 83605; 84145; 84484; 85025; 87040; 87077; 87186; 87631; 93005; 93041; 94760; 96360; 96365; 99285; U0003; J3370

== ENCOUNTER 2020-08-04 14:56 | Emergency (ER) | payer MEDICARE ==
[2020-08-04] MEDS ORDERED: Sodium Chloride 0.9% 1000 ML 1,000 ML ONE (15:43)
[2020-08-04] MEDS ORDERED: Sodium Chloride 0.9% 1000 ML 1,000 ML IV SCH (15:45)
[2020-08-04 16:01] LABS: Hematocrit 34.3 % (42-50); Hemoglobin 10.6 gm/dl (12.5-18.0); Mean Cell Volume 102.7 fl (78-100); Mean Corpuscular Hemoglobin 31.7 pg (26-32); Mean Corpuscular Hgb Concent. 30.9 g/dl (32-36); Mean Platelet Volume 10.2 fl (7.5-11.0); Platelet Count 644 K/mm3 (150-450); Red Blood Count 3.34 M/mm3 (4.1-5.6); Red Cell Distribution Width 16.7 % (11.5-14.0); White Blood Count 12.5 K/mm3 (4.0-10.5)
[2020-08-04 16:14] LABS: ALBUMIN 3.9 g/dL (3.5-5.0); ANION GAP 21.2 MEQ/L (5-15); BILIRUBIN,TOTAL 0.7 mg/dL (0.2-1.3); Calcium 8.8 mg/dL (8.4-10.2); Creatinine 1 11.2 mg/dL (0.66-1.25); Potassium 3.8 mmol/L (3.5-5.1); Total Protein 7.4 g/dL (6.3-8.2)
[2020-08-04 16:15] LABS: Appearance CLOUDY (CLEAR); Bacteria FEW /HPF (NEGATIVE); Bilirubin NEGATIVE (NEGATIVE); Blood SMALL Ery/ul (0-5); Glucose 150 mg/dL (NEGATIVE); Ketones NEGATIVE (NEGATIVE); Leukocyte Esterase TRACE (NEGATIVE); Mucus SLIGHT /HPF (NEGATIVE); Nitrite NEGATIVE (NEGATIVE); Protein,Urine Dip 100 (Negative); Specific Gravity 1.018 (1.005-1.025); Urobilinogen NEGATIVE mg/dL (0-1)
--- NOTE | 2020-08-04 16:48 | ERPHSYRPT ---
- History of Present Illness Time Seen by Provider: 08/04/20 15:15 Source: patient Exam Limitations: clinical condition Patient Subjective Stated Complaint: Left foot wound Triage Nursing Assessment: Pt presents to ED awake but drowsy. Answers questions appropriately. Skin somewhat pale. GCS 15. RR and HR WNL. Hypotension noted. Wound noted to left heel, covered with dressing. No drainage noted. Redness noted surrounding wound. Wound is black in appearance, approximately [id number]. Pt is weak. Physician History: This is an obese 60-year-old white male who has history of diabetes and renal failure on dialysis Wednesdays and Fridays. In the last few weeks, the patient has been noted to be a little more weak and with mild mental status changes post dialysis. Patient was dialyzed today. Dialysis center was concerned about the mental status change in the weakness. They sent the patient to the emergency room for evaluation of this as well as a chronically nonhealing left heel ulceration. There is been some odor in this area. This left heel ulcer has been present for a long time. 2 months ago, the patient had an angioplasty performed to allow greater blood flow to the left foot. Patient is on Eliquis. Patient was here in this emergency department 1 week ago with similar issues of weakness and mental status change. Again, it was postdialysis. They felt the patient was dehydrated. Per patient's significant other's response, the patient can receive 2 L of fluid a day. A CAT scan of the head was performed a week ago and there was no acute intracranial abnormalities. The patient significant other wants something done with the left heel ulceration. She would like to see Dr. Mckeon, our photography teacher who also performs wound care. Method of Injury: unknown Occurred: other (Chronic) Quality: other (No significant pain) Severity of Pain-Max: mild Severity of Pain-Current: mild Lower Extremities Pain: foot: left (He will) Modifying Factors: Improves With: nothing Associated Symptoms: other (Hurts to bear weight.) Allergies/Adverse Reactions: No Known Drug Allergies Allergy (Verified 08/04/20 14:58) Home Medications: Folic Acid 1 mg PO DAILY 07/17/19 [History] Sevelamer Carbonate [Renvela] 1,600 mg PO TID 07/17/19 [History] Tamsulosin HCl 0.4 mg PO HS 07/17/19 [History] Aspirin EC 81 mg [Ecotrin 81 mg] 81 mg PO DAILY 03/23/20 [History] Meclizine HCl 25 mg [Antivert 25 mg] 25 mg PO Q8H PRN PRN 03/23/20 [Histor y] Apixaban [Eliquis] 5 mg PO BID 07/27/20 [History] Docusate Sodium 100 mg [Colace 100 MG] 200 mg PO DAILY PRN PRN 07/27/20 [History] Evolocumab [Repatha Syringe] 140 ml SQ UD 07/27/20 [History] Fenofibrate 160 mg PO DAILY 07/27/20 [History] Insulin Lispro [Humalog] 1 units SQ Q6H PRN PRN 07/27/20 [History] Ketoconazole Cream [Nizoral CREAM] 60 gm TP DAILY PRN PRN 07/27/20 [History] Midodrine HCl 5 mg PO TID 07/27/20 [History] bisacodyL [Bisacodyl] 5 mg PO DAILY 07/27/20 [History] Hx Tetanus, Diphtheria Vaccination/Date Given: Yes Hx Influenza Vaccination/Date Given: Yes Hx Pneumococcal Vaccination/Date Given: Yes Immunizations Up to Date: Yes Travel Risk - International Travel Have you traveled outside of the country in past 3 weeks: No - Coronavirus Screening Are you exhibiting any of the following symptoms?: No Close contact with a COVID-19 positive Pt in past 14-21 Days: No - Review of Systems Constitutional: No Symptoms Eyes: No Symptoms Ears, Nose, & Throat: No Symptoms Respiratory: No Symptoms Cardiac: No Symptoms Abdominal/Gastrointestinal: No Symptoms Genitourinary Symptoms: No Symptoms Musculoskeletal: No Symptoms Skin: Decubiti (Left footheel ulcer), Other Psychological: No Symptoms Endocrine: No Symptoms Hematologic/Lymphatic: No Symptoms Immunological/Allergic: No Symptoms All Other Systems: Reviewed and Negative - Past Medical History Pertinent Past Medical History: Yes Neurological History: Paralysis, Peripheral Neuropathy, Stroke ENT History: Cataracts, Glaucoma, Macular Degeneration, Other Cardiac History: Coronary Artery Disease, High Cholesterol, Hypertension, Myocardial Infarction ([place]) Respiratory History: No Pertinent History Endocrine Medical History: Diabetes Type II, Hypoglycemia Musculoskeletal History: No Pertinent History GI Medical History: No Pertinent History History: Dialysis, Renal Disease Psycho-Social History: No Pertinent History Male Reproductive Disorders: No Pertinent History Other Medical History: legally blind bilaterateral eyes, 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, right upper arm fistula - Past Surgical History Past Surgical History: Yes Neuro Surgical History: No Pertinent History Cardiac: No Pertinent History Respiratory: No Pertinent History Gastrointestinal: No Pertinent History Genitourinary: No Pertinent History Musculoskeletal: No Pertinent History Male Surgical History: No Pertinent History Other Surgical History: fistula, amputation right part foot and toes - Social History Smoking Status: Never smoker Exposure to second hand smoke: No Drug Use: none Patient Lives Alone: No - Nursing Vital Signs Nursing Vital Signs: Initial Vital Signs Temperature 98.3 F 08/04/20 15:00 Pulse Rate 98 H 08/04/20 15:00 Respiratory Rate 18 08/04/20 15:00 Blood Pressure 86/58 08/04/20 15:00 O2 Sat by Pulse Oximetry 98 08/04/20 15:00 Pain Scale Pain Intensity 0 - Physical Exam General Appearance: no apparent distress, lethargy (Mild), obese Eyes, Ears, Nose, Throat Exam: normal ENT inspection, moist mucous membranes Neck Exam: normal inspection, non-tender, supple, full range of motion Cardiovascular/Respiratory Exam: chest non-tender, normal breath sounds, regular rate/rhythm, heart sounds normal, no respiratory distress Gastrointestinal/Abdominal Exam: non-tender Back Exam: normal inspection, normal range of motion, No CVA tenderness, No vertebral tenderness Hips Exam: bilateral: non-tender, normal inspection, normal range of motion, no evidence of injury Legs Exam: bilateral leg: non-tender, normal inspection, normal range of motion, no evidence of injury Knees Exam: bilateral knee: non-tender, normal inspection, normal range of motion, no evidence of injury Ankle Exam: bilateral ankle: non-tender, normal inspection, normal range of motion, no evidence of injury Foot Exam: left foot: bone tenderness, soft tissue tenderness, other (Patient has a 6 cm x 6 cm left heel ulceration with has a black eschar overlying it. There is some periwound redness present as well. There is malodor as well. There is no evidence of purulent drainage.) Neuro/Tendon Exam: sensory deficit (Patient has decreased sensation in the left foot and heel area. Likely due to peripheral neuropathy.) Mental Status Exam: oriented x 3, cooperative, lethargy (Mild. Arousable and answers questions normally) Skin Exam: decubitus (Left heel. See above) SpO2 Interpretation: normal SpO2: 99 O2 Delivery: Room Air - Course Nursing assessment & vital signs reviewed: Yes Ordered Tests: Active Orders 24 hr Category Date Time Status Rib Puller STAT Care 08/04/20 15:37 Active IV Insertion STAT Care 08/04/20 15:36 Active BLOOD CULTURE Stat Lab 08/04/20 15:15 Received CBC W DIFF Stat Lab 08/04/20 15:15 Completed CMP Stat Lab 08/04/20 15:15 Completed CULTURE,URINE Stat Lab 08/04/20 13:38 Received CULTURE,WOUND Stat Lab 08/04/20 15:50 Received Lactic Acid Stat Lab 08/04/20 15:47 Completed Manual Differential NC Stat Lab 08/04/20 15:15 Completed UA W/RFX UR CULTURE Stat Lab 08/04/20 13:38 Completed Medication Summary Generic Name Dose Route Start Last Admin Trade Name Freq PRN Reason Stop Dose Admin Sodium Chloride 1,000 mls @ 50 mls/hr 08/04/20 15:45 08/04/20 15:43 Sodium Chloride 0.9% 1000 Ml IV 09/03/20 15:44 50 mls/hr .Q20H JHON Administration Discontinued Medications Generic Name Dose Route Start Last Admin Trade Name Freq PRN Reason Stop Dose Admin Sodium Chloride 500 mls @ 999 mls/hr 08/04/20 17:03 08/04/20 17:04 Sodium Chloride 0.9% 500 Ml IV 08/04/20 17:33 Infused .Q31M ONE Infusion Sodium Chloride Confirm 08/04/20 17:01 Sodium Chloride 0.9% 500 Ml Administered 08/04/20 17:02 Dose 500 mls @ ud IV .STK-MED ONE Levofloxacin/Dextrose 500 mg in 100 mls @ 100 mls/hr 08/04/20 17:59 08/04/20 18:02 Levofloxacin 500mg/100ml D5w IV 08/04/20 18:58 100 mls/hr STAT STA 100 mls/hr Administration Levofloxacin/Dextrose Confirm 08/04/20 18:01 Levofloxacin 500mg/100ml D5w Administered 08/04/20 18:02 Dose 500 mg in 100 mls @ ud IV .STK-MED ONE Lab/Rad Data: Laboratory Result Diagrams 08/04/20 15:15 08/04/20 15:15 Laboratory Results 08/04/20 08/04/20 08/04/20 Range/Units 15:47 15:15 15:15 WBC 12.5 H (4.0-10.5) K/mm3 RBC 3.34 L (4.1-5.6) M/mm3 Hgb 10.6 L (12.5-18.0) gm/dl Hct 34.3 L (42-50) % MCV 102.7 H (78-100) fl MCH 31.7 (26-32) pg MCHC 30.9 L (32-36) g/dl RDW 16.7 H (11.5-14.0) % Plt Count 644 H (150-450) K/mm3 MPV 10.2 (7.5-11.0) fl Sodium 133 L (137-145) mmol/L Potassium 3.8 (3.5-5.1) mmol/L Chloride 89 L (98-107) mmol/L Carbon Dioxide 27 (22-30) mmol/L Anion Gap 21.2 H (5-15) MEQ/L BUN 52 H (9-20) mg/dL Creatinine 11.20 H (0.66-1.25) mg/dL Estimated GFR 5.0 ML/MIN Glucose 280 H (74-106) mg/dL Lactic Acid 1.8 (0.4-2.0) Calcium 8.8 (8.4-10.2) mg/dL Total Bilirubin 0.70 (0.2-1.3) mg/dL AST 18 (17-59) U/L ALT 10 (0-50) U/L Alkaline Phosphatase 46 (38-126) U/L Serum Total Protein 7.4 (6.3-8.2) g/dL Albumin 3.9 (3.5-5.0) g/dL Urine Color (YELLOW) Urine Appearance (CLEAR) Urine pH (5-6) Ur Specific [place] (1.005-1.025) Urine Protein (Negative) Urine Ketones (NEGATIVE) Urine Blood (0-5) Андрей/ul Urine Nitrite (NEGATIVE) Urine Bilirubin (NEGATIVE) Urine Urobilinogen (0-1) mg/dL Ur Leukocyte Esterase (NEGATIVE) Urine WBC (Auto) (0-5) /HPF Urine RBC (Auto) (0-2) /HPF U Hyaline Cast (Auto) (0-2) /LPF U Epithel Cells (Auto) (FEW) /HPF Urine Bacteria (Auto) (NEGATIVE) /HPF Urine Mucus (Auto) (NEGATIVE) /HPF Urine Culture Reflexed (NO) Urine Glucose (NEGATIVE) mg/dL 08/04/20 Range/Units 13:38 WBC (4.0-10.5) K/mm3 RBC (4.1-5.6) M/mm3 Hgb (12.5-18.0) gm/dl Hct (42-50) % MCV (78-100) fl MCH (26-32) pg MCHC (32-36) g/dl RDW (11.5-14.0) % Plt Count (150-450) K/mm3 MPV (7.5-11.0) fl Sodium (137-145) mmol/L Potassium (3.5-5.1) mmol/L Chloride (98-107) mmol/L Carbon Dioxide (22-30) mmol/L Anion Gap (5-15) MEQ/L BUN (9-20) mg/dL Creatinine (0.66-1.25) mg/dL Estimated GFR ML/MIN Glucose (74-106) mg/dL Lactic Acid (0.4-2.0) Calcium (8.4-10.2) mg/dL Total Bilirubin (0.2-1.3) mg/dL AST (17-59) U/L ALT (0-50) U/L Alkaline Phosphatase (38-126) U/L Serum Total Protein (6.3-8.2) g/dL Albumin (3.5-5.0) g/dL Urine Color MICHELE (YELLOW) Urine Appearance CLOUDY (CLEAR) Urine pH 5.0 (5-6) Ur Specific [place] 1.018 (1.005-1.025) Urine Protein 100 (Negative) Urine Ketones NEGATIVE (NEGATIVE) Urine Blood SMALL (0-5) Андрей/ul Urine Nitrite NEGATIVE (NEGATIVE) Urine Bilirubin NEGATIVE (NEGATIVE) Urine Urobilinogen NEGATIVE (0-1) mg/dL Ur Leukocyte Esterase TRACE (NEGATIVE) Urine WBC (Auto) 6-10 (0-5) /HPF Urine RBC (Auto) 11-15 (0-2) /HPF U Hyaline Cast (Auto) 3-5 (0-2) /LPF U Epithel Cells (Auto) NONE (FEW) /HPF Urine Bacteria (Auto) FEW (NEGATIVE) /HPF Urine Mucus (Auto) SLIGHT (NEGATIVE) /HPF Urine Culture Reflexed ORDERED SEPARATELY (NO) Urine Glucose 150 (NEGATIVE) mg/dL - Progress Progress: improved, re-examined Progress Note: 08/04/20 18:05 Medical decision making: This patient appears to have a left heel decubitus ulcer that is necrotic. I believe that the patient's hypotension and brief mental status changes are associated with his dialysis. These symptoms have occurred a few times in the last 2 weeks after dialysis. His symptoms are improving with IV hydration. I did speak with the photography teacher Dr. Mckeon regarding this patient. The patient has had symptoms of decubitus ulcer in the left heel for quite some time. He had an angioplasty performed 2 months ago. There should be increased flow to this site. The patient and the patient's significant other would like this left heel wound/ulceration addressed. Dr. Mckeon will see the patient tomorrow in the office. I will provide the patient with a single dose of Levaquin antibiotic intravenously. 08/04/20 19:[address] Tamez the patient's primary care physician. I reviewed the patient condition, history, laboratory results and physical findings. Patient desires to follow the plan as discussed above. He is feeling much better per his report. Dr. Tamez agrees with the above plan as well. We will discharge the patient home Counseled pt/family regarding: lab results, diagnosis, need for follow-up, rad results - Departure Departure Disposition: Home Clinical Impression: Decubitus ulcer, Hypotension due to hypovolemia Condition: Stable Critical Care Time: No Referrals: INGRID TAMEZ MD [Primary Care Provider] - Additional Instructions: Follow-up with Dr. Mckeon, photography teacher at [facility] podiatry clinic tomorrow afternoon at scheduled appointment time.
[2020-08-04] MEDS ORDERED: Sodium Chloride 0.9% 500 ML 500 ML IV ONE ×2 (17:01→17:03)
[2020-08-04] MEDS ORDERED: Levofloxacin 500MG/100ML D5W 500 MG/100 ML BAG IV STA (17:59)
[2020-08-04] MEDS ORDERED: Levofloxacin 500MG/100ML D5W 500 MG/100 ML BAG IV ONE (18:01)
[2020-08-04 19:10] VITALS: O2SAT 99
[2020-08-04 19:29] LABS: ATYPICAL LYMPHS 1 %; BAND 3 % (0.0-2.0); Basophil 1 % (0.0-1.0); Lymphocytes 9 % (24-44); Monocyte 1 % (0.0-12.0); Neutrophils 85 % (36.-66.); Platelet Estimate NORMAL (NORMAL); Total Cells Counted 100
[2020-08-04 19:30] LABS: Macrocytosis 1+
[2020-08-04 21:20] VITALS: BP 97/57; PULSE 90
== END 2020-08-04 21:25 | disposition home or self-care (01) ==
LOC: ED 14:56
DX: Z79.01 Long term (current) use of anticoagulants (principal); Z79.899 Other long term (current) drug therapy
CPT/HCPCS: 36000; 36415; 51702; 80053; 81001; 83605; 85025; 87040; 87070; 87077; 87086; 87186; 93041; 96360; 96361; 96365; 99284; J1956

== ENCOUNTER 2020-08-20 11:05 | Emergency (ER) | payer MEDICARE ==
[2020-08-20 11:32] LABS: Hematocrit 31.5 % (42-50); Hemoglobin 9.6 gm/dl (12.5-18.0); Mean Cell Volume 102.3 fl (78-100); Mean Corpuscular Hemoglobin 31.2 pg (26-32); Mean Corpuscular Hgb Concent. 30.5 g/dl (32-36); Mean Platelet Volume 9.7 fl (7.5-11.0); Platelet Count 447 K/mm3 (150-450); Red Blood Count 3.08 M/mm3 (4.1-5.6); Red Cell Distribution Width 18.7 % (11.5-14.0); White Blood Count 9.6 K/mm3 (4.0-10.5)
[2020-08-20 11:46] LABS: ALBUMIN 3.5 g/dL (3.5-5.0); ANION GAP 16.4 MEQ/L (5-15); BILIRUBIN,TOTAL 0.6 mg/dL (0.2-1.3); Calcium 8.3 mg/dL (8.4-10.2); Creatinine 1 10.66 mg/dL (0.66-1.25); EST GLOMERULAR FILTRATION RATE 5.3 ML/MIN; Potassium 3.8 mmol/L (3.5-5.1); Total Protein 6.4 g/dL (6.3-8.2)
[2020-08-20 11:51] LABS: BAND 6 % (0.0-2.0); Basophil 1 % (0.0-1.0); Eosinophil 4 % (0.00-3.0); Lymphocytes 12 % (24-44); Monocyte 3 % (0.0-12.0); Neutrophils 74 % (36.-66.); Total Cells Counted 100
[2020-08-20 11:52] LABS: Hypochromia 1+; Platelet Estimate NORMAL (NORMAL); Polychromasia 1+
[2020-08-20 11:53] LABS: ANISOCYTOSIS 1+; Macrocytosis 1+
[2020-08-20 11:54] LABS: Absolute Neutrophil Ct (ANC) 7.66 (1.4-6.9)
--- NOTE | 2020-08-20 11:58 | ERPHSYRPT ---
- History of Present Illness Source: patient, other () Exam Limitations: no limitations Patient Subjective Stated Complaint: pt here for weakness and not eating well for over a week now, he was recently at [facility], the spouse states she thinks he had a stroke maybe while at [place] because he has not been able to eat, denies fever, sob , or cough Triage Nursing Assessment: pt alert,arrived per ambulance, resp easy, face mask in place, has fistula right lower arm with strong brui,has pic line to left ac, that flushes well, has wound vac to left heel, has peritneal cath to abd. Physician History: 60 yo debilitated wm w lethargy/decreased po intake/confusion x 2 wks. Pt was discharged from [facility] 8 days ago for sepsis. He has a chronic L diabetic foot ulcer for which he is receiving Ertipenem IV at home. Pt has ESRD and does PD. states that he has had mild N/V but denies fever/D/chest pain/melena/hematochezia/cough. Timing/Duration: other (2 wks) Severity: moderate Modifying Factors: Improves With: nothing Associated Symptoms: nausea, vomiting, loss of appetite, weakness, No abdominal pain, No shortness of breath, No heartburn, No diaphoresis, No cough, No chills, No chest pain, No fever, No headaches, No malaise, No rash, No syncope, No seizure Allergies/Adverse Reactions: No Known Drug Allergies Allergy (Verified 08/20/20 11:37) Home Medications: Folic Acid 1 mg PO DAILY 07/17/19 [History] Sevelamer Carbonate [Renvela] 1,600 mg PO TID 07/17/19 [History] Tamsulosin HCl 0.4 mg PO HS 07/17/19 [History] Aspirin EC 81 mg [Ecotrin 81 mg] 81 mg PO DAILY 03/23/20 [History] Apixaban [Eliquis] 5 mg PO BID 07/27/20 [History] Evolocumab [Repatha Syringe] 140 ml SQ UD 07/27/20 [History] Fenofibrate 160 mg PO DAILY 07/27/20 [History] Insulin Lispro [Humalog] 1 units SQ Q6H PRN PRN 07/27/20 [History] Ketoconazole Cream [Nizoral CREAM] 60 gm TP DAILY PRN PRN 07/27/20 [History] Ertapenem Sodium [Ertapenem] 500 mg DAILY 08/20/20 [History] Insulin Glargine,Hum.rec.anlog [Lantus] 1 unit DAILY 08/20/20 [History] L.acidoph,Paracasei, B.lactis [Probiotic] 1 ea DAILY 08/20/20 [History] Megestrol Acetate 40 mg/ml [Megace 40 MG/ML] 1 ml DAILY 08/20/20 [History] Midodrine HCl 5 mg [Proamatine 5 mg] 1 ea TID 08/20/20 [History] Hx Tetanus, Diphtheria Vaccination/Date Given: Yes Hx Influenza Vaccination/Date Given: Yes Hx Pneumococcal Vaccination/Date Given: Yes Immunizations Up to Date: Yes Travel Risk - International Travel Have you traveled outside of the country in past 3 weeks: No - Coronavirus Screening Are you exhibiting any of the following symptoms?: No Close contact with a COVID-19 positive Pt in past 14-21 Days: No - Review of Systems Constitutional: Fatigue, Lethargy, Malaise, Weakness, No Fever, No Chills, No Night Sweats, No Weight Loss, No Other Eyes: No Symptoms Ears, Nose, & Throat: No Symptoms Respiratory: No Symptoms Cardiac: No Symptoms Abdominal/Gastrointestinal: No Symptoms, Nausea, Vomiting Genitourinary Symptoms: No Symptoms Skin: No Symptoms Neurological: No Dizziness, No Focal Weakness, No Gait Changes, No Headache, No Irritability, No Lethargy, No Paralysis, No Parasthesia, No Seizure, No Sensory Changes, No Speech Changes, No Tics, No Tremors, No Vertigo Psychological: Other (Confusion), No Alcohol Abuse, No Drug Abuse, No Anxiety, No Depression, No Suicidal Ideations, No Homicidal Ideations, No Emotional Lability, No Hallucinations, No Memory Loss Endocrine: No Symptoms Hematologic/Lymphatic: No Symptoms Immunological/Allergic: No Symptoms - Past Medical History Pertinent Past Medical History: Yes Neurological History: Peripheral Neuropathy, Stroke ENT History: Cataracts, Glaucoma, Macular Degeneration, Other Cardiac History: Coronary Artery Disease, High Cholesterol, Hypertension, Myocardial Infarction ([place]) Respiratory History: No Pertinent History Endocrine Medical History: Diabetes Type II, Hypoglycemia Musculoskeletal History: No Pertinent History GI Medical History: No Pertinent History History: Dialysis, Renal Disease Psycho-Social History: No Pertinent History Male Reproductive Disorders: No Pertinent History Other Medical History: legally blind bilaterateral eyes, 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, right upper arm fistula , unable to walk - Past Surgical History Past Surgical History: Yes Neuro Surgical History: No Pertinent History Cardiac: No Pertinent History Respiratory: No Pertinent History Gastrointestinal: No Pertinent History Genitourinary: No Pertinent History Musculoskeletal: No Pertinent History Male Surgical History: No Pertinent History Other Surgical History: fistula, amputation right part foot and toes - Social History Smoking Status: Never smoker Exposure to second hand smoke: No Drug Use: none Patient Lives Alone: No - Nursing Vital Signs Nursing Vital Signs: Initial Vital Signs Temperature 97.2 F 08/20/20 11:07 Pulse Rate 89 08/20/20 11:07 Respiratory Rate 18 08/20/20 11:07 Blood Pressure 94/61 08/20/20 11:07 O2 Sat by Pulse Oximetry 99 08/20/20 11:07 Pain Scale Pain Intensity 0 - Physical Exam General Appearance: no apparent distress (Chronically ill appearing WM in NAD) Eye Exam: PERRL/EOMI, eyes nml inspection, No scleral icterus Ears, Nose, Throat Exam: normal ENT inspection, TMs normal, pharynx normal, moist mucous membranes Neck Exam: normal inspection Respiratory Exam: airway intact, crackles/rales (Rales bases B), No respiratory distress Cardiovascular Exam: regular rate/rhythm, normal heart sounds, normal peripheral pulses, No murmur Gastrointestinal/Abdomen Exam: soft, normal bowel sounds, other (PD catheter), No tenderness SpO2: 99 Ordered Tests: Active Orders 24 hr Category Date Time Status CHEST WITHOUT CONTRAST [CT] Stat Exams 08/20/20 11:33 Completed HEAD WITHOUT CONTRAST [CT] Stat Exams 08/20/20 11:32 Completed CBC W DIFF Stat Lab 08/20/20 11:20 Completed CMP Stat Lab 08/20/20 11:20 Completed Lactic Acid Stat Lab 08/20/20 11:45 Completed Manual Differential NC Stat Lab 08/20/20 11:20 Completed TROPONIN Q3H Lab 08/20/20 11:20 Completed TROPONIN Q3H Lab 08/20/20 13:00 Completed Medication Summary Discontinued Medications Generic Name Dose Route Start Last Admin Trade Name Freq PRN Reason Stop Dose Admin Heparin Sodium (Beef Lung) Confirm 08/20/20 14:14 Heparin Lock Flush 100 Units/Ml 5ml Syringe Administered 08/20/20 14:15 Dose 1,000 units .ROUTE .[employer]-MED ONE Lab/Rad Data: Laboratory Result Diagrams 08/20/20 11:20 08/20/20 11:20 Laboratory Results 08/20/20 08/20/20 08/20/20 Range/Units 13:00 11:45 11:20 WBC (4.0-10.5) K/mm3 RBC (4.1-5.6) M/mm3 Hgb (12.5-18.0) gm/dl Hct (42-50) % MCV (78-100) fl MCH (26-32) pg MCHC (32-36) g/dl RDW (11.5-14.0) % Plt Count (150-450) K/mm3 MPV (7.5-11.0) fl Absolute Granulocytes (1.4-6.9) Segmented Neutrophils (36.-66.) % Band Neutrophils (0.0-2.0) % Lymphocytes (Manual) (24-44) % Monocytes (Manual) (0.0-12.0) % Eosinophils (Manual) (0.00-3.0) % Basophils (Manual) (0.0-1.0) % Hypochromia Platelet Estimate (NORMAL) RBC Morphology Polychromasia Anisocytosis Macrocytosis Sodium (137-145) mmol/L Potassium (3.5-5.1) mmol/L Chloride (98-107) mmol/L Carbon Dioxide (22-30) mmol/L Anion Gap (5-15) MEQ/L BUN (9-20) mg/dL Creatinine (0.66-1.25) mg/dL Estimated GFR ML/MIN Glucose (74-106) mg/dL Lactic Acid 1.2 (0.4-2.0) Calcium (8.4-10.2) mg/dL Total Bilirubin (0.2-1.3) mg/dL AST (17-59) U/L ALT (0-50) U/L Alkaline Phosphatase (38-126) U/L Troponin I 0.040 H* 0.046 H* (0.000-0.034) ng/mL Serum Total Protein (6.3-8.2) g/dL Albumin (3.5-5.0) g/dL 08/20/20 08/20/20 Range/Units 11:20 11:20 WBC 9.6 (4.0-10.5) K/mm3 RBC 3.08 L (4.1-5.6) M/mm3 Hgb 9.6 L (12.5-18.0) gm/dl Hct 31.5 L (42-50) % MCV 102.3 H (78-100) fl MCH 31.2 (26-32) pg MCHC 30.5 L (32-36) g/dl RDW 18.7 H (11.5-14.0) % Plt Count 447 (150-450) K/mm3 MPV 9.7 (7.5-11.0) fl Absolute Granulocytes 7.66 H (1.4-6.9) Segmented Neutrophils 74 H (36.-66.) % Band Neutrophils 6 H (0.0-2.0) % Lymphocytes (Manual) 12 L (24-44) % Monocytes (Manual) 3 (0.0-12.0) % Eosinophils (Manual) 4 H (0.00-3.0) % Basophils (Manual) 1 (0.0-1.0) % Hypochromia 1+ Platelet Estimate NORMAL (NORMAL) RBC Morphology ABNORMAL Polychromasia 1+ Anisocytosis 1+ Macrocytosis 1+ Sodium 137 (137-145) mmol/L Potassium 3.8 (3.5-5.1) mmol/L Chloride 98 (98-107) mmol/L Carbon Dioxide 26 (22-30) mmol/L Anion Gap 16.4 H (5-15) MEQ/L BUN 52 H (9-20) mg/dL Creatinine 10.66 H (0.66-1.25) mg/dL Estimated GFR 5.3 ML/MIN Glucose 95 (74-106) mg/dL Lactic Acid (0.4-2.0) Calcium 8.3 L (8.4-10.2) mg/dL Total Bilirubin 0.60 (0.2-1.3) mg/dL AST 24 (17-59) U/L ALT 9 (0-50) U/L Alkaline Phosphatase 46 (38-126) U/L Troponin I (0.000-0.034) ng/mL Serum Total Protein 6.4 (6.3-8.2) g/dL Albumin 3.5 (3.5-5.0) g/dL - Progress Progress: unchanged Progress Note: 08/20/20 13:[address] Tamez, wants to send home w follow up. Discussed with : Basim Counseled pt/family regarding: lab results, diagnosis, need for follow-up, rad results - Departure Departure Disposition: Home Clinical Impression: Lethargy, Type 2 diabetes with nephropathy Condition: Stable Critical Care Time: No Referrals: INGRID TAMEZ MD [Primary Care Provider] - Instructions: Generalized Weakness (DC) Additional Instructions: Follow up with Dr. Tamez Return to ER for temperature greater than 100.5/Chest pain/shortness of breath
--- NOTE | 2020-08-20 12:14 | XRAY ---
Indication: Cough, short of breath, lethargy, and trouble swallowing. Multiple contiguous axial images obtained through the chest without contrast as ordered. Comparison: None Mild aspiration artifact throughout. Scattered subsegmental atelectasis/scarring, right lung greater than left. No suspicious pulmonary mass, infiltrate, or effusion. Heart is not enlarged with mitral valve calcifications and left arm PICC line in situ. Scattered aortic and coronary calcifications. Bony thorax intact with minimal degenerative changes throughout the spine. Limited upper abdomen demonstrates tiny perihepatic fluid and 14.7 cm splenomegaly. Impression: 1. Respiration artifact. No gross acute cardiopulmonary abnormalities on this noncontrast exam. 2. Scattered atelectasis/scarring, mitral valve calcifications, and arteriosclerotic calcifications. 2. Incidental tiny perihepatic fluid and splenomegaly.
--- NOTE | 2020-08-20 12:15 | XRAY ---
Indication: Altered mental status. Multiple contiguous axial images obtained through the head without contrast. Comparison: July 27, 2020. Stable age-appropriate global atrophy, mild ventricular degenerative micro-ischemia, small right occipital lobe infarct, and small left cerebellum infarct. No acute intracranial hemorrhage, hydrocephalus, or mass effect. Fourth ventricle is midline. Bony calvarium intact. Visualized paranasal sinuses and mastoid air cells are clear. Impression: Continued nonacute senile brain with small old infarcts as detailed.
[2020-08-20 14:05] VITALS: BP 95/61
[2020-08-20 14:22] VITALS: PULSE 88
[2020-08-20 19:05] VITALS: O2SAT 99
== END 2020-08-20 14:42 | disposition home or self-care (01) ==
LOC: ED 11:05
DX: R53.83 Other fatigue (principal); E11.21 Type 2 diabetes mellitus with diabetic nephropathy; E11.621 Type 2 diabetes mellitus with foot ulcer; E11.22 Type 2 diabetes mellitus with diabetic chronic kidney disease; I13.11 Hypertensive heart and chronic kidney disease without heart failure, with stage 5 chronic kidney disease, or end stage renal disease; N18.6 End stage renal disease; R41.0 Disorientation, unspecified; Z99.2 Dependence on renal dialysis; E78.00 Pure hypercholesterolemia, unspecified; I25.2 Old myocardial infarction; R11.2 Nausea with vomiting, unspecified; Z79.899 Other long term (current) drug therapy; Z79.01 Long term (current) use of anticoagulants
CPT/HCPCS: 36415; 70450; 71250; 80053; 83605; 84484; 85025; 99284; J1642

== ENCOUNTER 2020-11-09 11:53 | Emergency (ER) | payer MEDICARE ==
[2020-11-09] MEDS ORDERED: Sodium Chloride 0.9% 1000 ML 1,000 ML IV STA (11:56)
[2020-11-09 12:24] LABS: Absolute Neutrophil Ct (ANC) 6.83 (1.4-6.9); BASOPHIL % 0.8 % (0.0-0.4); Basophil (Absolute #) 0.08 (0-0.4); Eosinophil % 1.6 % (0.00-5.0); Eosinophil (Absolute #) 0.15 (0-0.5); Hematocrit 45.9 % (42-50); Hemoglobin 14.9 gm/dl (12.5-18.0); Lymphocyte (Absolute #) 1.94 (1.0-4.6); Lymphocytes % 20.2 % (24.0-44.0); Mean Cell Volume 100.7 fl (78-100); Mean Corpuscular Hemoglobin 32.7 pg (26-32); Mean Corpuscular Hgb Concent. 32.5 g/dl (32-36); Mean Platelet Volume 10.1 fl (7.5-11.0); Monocytes % 6.3 % (0.0-12.0); Neutrophil % 71.1 % (36.0-66.0); Platelet Count 391 K/mm3 (150-450); Red Blood Count 4.56 M/mm3 (4.1-5.6); Red Cell Distribution Width 18.1 % (11.5-14.0); White Blood Count 9.6 K/mm3 (4.0-10.5)
--- NOTE | 2020-11-09 12:26 | XRAY ---
Indication: Decreased blood pressure. Acute mental status change. Comparison: July 27, 2020. Portable chest again demonstrates mild right hemidiaphragm elevation with right base atelectasis/scarring. Remaining heart and lungs unremarkable. Bony thorax intact. Impression: Nonacute chest with chronic features.
[2020-11-09 12:29] LABS: ALBUMIN 3.9 g/dL (3.5-5.0); ANION GAP 22.6 MEQ/L (5-15); BILIRUBIN,TOTAL 0.9 mg/dL (0.2-1.3); Calcium 9.7 mg/dL (8.4-10.2); Creatinine 1 9.8 mg/dL (0.66-1.25); EST GLOMERULAR FILTRATION RATE 5.8 ML/MIN; Total Protein 6.4 g/dL (6.3-8.2)
[2020-11-09 12:35] LABS: Potassium 2.6 mmol/L (3.5-5.1)
[2020-11-09 12:37] LABS: INR 1.53 (0.8-3.0); PROTIME 17.4 SECONDS (8.83-12.87)
[2020-11-09] MEDS ORDERED: Sodium Chloride 0.9% 1000 ML 1,000 ML ONE (12:46)
[2020-11-09 13:00] LABS: Basophil 1 % (0.0-1.0); Eosinophil 1 % (0.00-3.0); Lymphocytes 25 % (24-44); Macrocytosis 1+; Monocyte 5 % (0.0-12.0); Neutrophils 68 % (36.-66.); Platelet Estimate NORMAL (NORMAL); Polychromasia 1+; Total Cells Counted 100
--- NOTE | 2020-11-09 13:05 | ERPHSYRPT ---
- History of Present Illness Time Seen by Provider: 11/09/20 12:00 Patient Subjective Stated Complaint: pt here for right hand going blue so called ambulance, ems states pt hand was blue in color but had strong radial pulse, o2 sats 88% and o2 placed per nc, states not eating or drinking well, Triage Nursing Assessment: pt arrrived per ambulnace, alert but confused to date. right hand pink,cold with strong radial pulse, has fistula to right arm with bruits, pt cath for peritineal dylasis with out reddness, abd soft, Physician History: 60-year-old male with end-stage renal disease who is on home peritoneal dialysis who presents by ambulance to the ER with a complaint of the right hand being cyanotic and cold on arrival it was slightly cool but otherwise color was normal cap refill was normal normally his blood pressures run in the 8090 range she was down in the 60s. He also had an O2 sat of 88% which did respond to nasal cannula O2. On chronic atrial fib anticoagulation with Eliquis. He is also reportedly not been eating or drinking at all for 3 days. Timing/Duration: day(s) (3) Severity: moderate Modifying Factors: Improves With: nothing Associated Symptoms: loss of appetite, weakness Allergies/Adverse Reactions: No Known Drug Allergies Allergy (Verified 11/09/20 12:05) Home Medications: Folic Acid 1 mg PO DAILY 07/17/19 [History] Sevelamer Carbonate [Renvela] 1,600 mg PO TID 07/17/19 [History] Apixaban [Eliquis] 2.5 mg PO BID 07/27/20 [History] Fenofibrate 160 mg PO DAILY 07/27/20 [History] Insulin Lispro [Humalog] 1 units SQ Q6H PRN PRN 07/27/20 [History] Insulin Glargine,Hum.rec.anlog [Lantus] 1 unit DAILY 08/20/20 [History] Megestrol Acetate 40 mg/ml [Megace 40 MG/ML] 1 ml PO DAILY 08/20/20 [History] Midodrine HCl 5 mg [Proamatine 5 mg] 1 ea TID 08/20/20 [History] Famotidine 20 mg [Pepcid 20 MG] 20 mg PO BID 11/09/20 [History] Hydrocodone/Acetaminophen [Hydrocodone-Acetamin 5-325 mg] 1 tab PO Q4HPRN PRN 11/09/20 [History] Hx Tetanus, Diphtheria Vaccination/Date Given: Yes Hx Influenza Vaccination/Date Given: Yes Hx Pneumococcal Vaccination/Date Given: Yes Travel Risk - International Travel Have you traveled outside of the country in past 3 weeks: No - Coronavirus Screening Are you exhibiting any of the following symptoms?: No Close contact with a COVID-19 positive Pt in past 14-21 Days: No - Review of Systems All Other Systems: Unable due to condition - Past Medical History Pertinent Past Medical History: Yes Neurological History: Peripheral Neuropathy, Stroke ENT History: Cataracts, Glaucoma, Macular Degeneration, Other Cardiac History: Coronary Artery Disease, High Cholesterol, Hypertension, Myocardial Infarction ([place]) Respiratory History: No Pertinent History Endocrine Medical History: Diabetes Type II, Hypoglycemia Musculoskeletal History: No Pertinent History GI Medical History: No Pertinent History History: Dialysis, Renal Disease Psycho-Social History: No Pertinent History Male Reproductive Disorders: No Pertinent History Other Medical History: legally blind bilaterateral eyes, 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, right upper arm fistula , unable to walk - Past Surgical History Past Surgical History: Yes Neuro Surgical History: No Pertinent History Cardiac: No Pertinent History Respiratory: No Pertinent History Gastrointestinal: No Pertinent History Genitourinary: No Pertinent History Musculoskeletal: No Pertinent History Male Surgical History: No Pertinent History Other Surgical History: fistula, amputation right part foot and toes - Social History Smoking Status: Never smoker Exposure to second hand smoke: No Drug Use: none Patient Lives Alone: No - Nursing Vital Signs Nursing Vital Signs: Initial Vital Signs Temperature 96.4 F 11/09/20 11:55 Pulse Rate 81 11/09/20 11:55 Respiratory Rate 16 11/09/20 11:55 Blood Pressure 80/56 11/09/20 11:55 Pain Scale Pain Intensity 0 - Physical Exam General Appearance: mild distress, alert Eye Exam: other (Left eye apparently enucleated) Ears, Nose, Throat Exam: normal ENT inspection, TMs normal, pharynx normal, dry mucous membranes Neck Exam: normal inspection, non-tender, supple, full range of motion Respiratory Exam: normal breath sounds, lungs clear, No respiratory distress Cardiovascular Exam: regular rate/rhythm, normal heart sounds, normal peripheral pulses Gastrointestinal/Abdomen Exam: soft, normal bowel sounds, No tenderness, No mass Back Exam: normal inspection, normal range of motion, No CVA tenderness, No vertebral tenderness Extremity Exam: normal range of motion, pelvis stable, other ( surgical absence left foot) Neurologic Exam: alert, cooperative, nml cerebellar function, nml station & gait, sensation nml, No motor deficits Skin Exam: normal color, warm, dry, No rash Lymphatic Exam: No adenopathy SpO2 Interpretation: normal O2 Delivery: Room Air - Course EKG Interpreted by Me: RATE, A-fib - Radiology Exams Chest X-ray Interpretation: Other (Radiologist reports no acute processes identified) - CT Exams Head CT Interpretation: Other (Negative for acute findings per the radiologist old infarcts noted) Ordered Tests: Active Orders 24 hr Category Date Time Status EKG-ER Only STAT Care 11/09/20 11:56 Active IV Insertion STAT Care 11/09/20 11:56 Active CHEST 1 VIEW (PORTABLE) Stat Exams 11/09/20 11:57 Completed HEAD WITHOUT CONTRAST [CT] Stat Exams 11/09/20 12:14 Completed AMYLASE Stat Lab 11/09/20 12:10 Completed BLOOD CULTURE Stat Lab 11/09/20 12:10 Received CBC W DIFF Stat Lab 11/09/20 12:10 Completed CMP Stat Lab 11/09/20 12:10 Completed LIPASE Stat Lab 11/09/20 12:10 Completed Lactic Acid Stat Lab 11/09/20 11:56 Completed Lactic Acid Stat Lab 11/09/20 14:12 Received Manual Differential NC Stat Lab 11/09/20 12:10 Completed POCT GLUCOSE Stat Lab 11/09/20 14:20 Completed PROTIME WITH INR Stat Lab 11/09/20 12:10 Completed TROPONIN Q3H Lab 11/09/20 12:10 Completed TROPONIN Q3H Lab 11/09/20 15:00 Ordered TROPONIN Q3H Lab 11/09/20 18:00 Ordered TROPONIN Q3H Lab 11/09/20 21:00 Ordered TROPONIN Q3H Lab 11/10/20 00:00 Ordered Medication Summary Discontinued Medications Generic Name Dose Route Start Last Admin Trade Name Freq PRN Reason Stop Dose Admin Sodium Chloride 1,000 mls @ 999 mls/hr 11/09/20 11:56 11/09/20 13:11 Sodium Chloride 0.9% 1000 Ml IV 11/09/20 12:56 999 mls/hr .Q1H1M STA Administration Sodium Chloride Confirm 11/09/20 12:46 Sodium Chloride 0.9% 1000 Ml Administered 11/09/20 12:47 Dose 1,000 mls @ ud .ROUTE .STK-MED ONE Ondansetron HCl Confirm 11/09/20 14:18 Zofran 4 Mg/2 Ml Vial Administered 11/09/20 14:19 Dose 4 mg .ROUTE .STK-MED ONE Potassium Bicarbonate Confirm 11/09/20 13:13 K-Lyte 25 Meq Administered 11/09/20 13:14 Dose 25 meq .ROUTE .STK-MED ONE Potassium Bicarbonate 25 meq 11/09/20 14:21 11/09/20 14:23 K-Lyte 25 Meq PO 11/09/20 14:22 25 meq STAT ONE Administration Lab/Rad Data: Laboratory Result Diagrams 11/09/20 12:10 11/09/20 12:10 Laboratory Results 11/09/20 11/09/20 11/09/20 Range/Units 14:20 12:10 12:10 WBC (4.0-10.5) K/mm3 RBC (4.1-5.6) M/mm3 Hgb (12.5-18.0) gm/dl Hct (42-50) % MCV (78-100) fl MCH (26-32) pg MCHC (32-36) g/dl RDW (11.5-14.0) % Plt Count (150-450) K/mm3 MPV (7.5-11.0) fl Gran % (36.0-66.0) % Eos # (Auto) (0-0.5) Absolute Lymphs (auto) (1.0-4.6) Absolute Monos (auto) (0.0-1.3) Lymphocytes % (24.0-44.0) % Monocytes % (0.0-12.0) % Eosinophils % (0.00-5.0) % Basophils % (0.0-0.4) % Absolute Granulocytes (1.4-6.9) Segmented Neutrophils (36.-66.) % Lymphocytes (Manual) (24-44) % Monocytes (Manual) (0.0-12.0) % Eosinophils (Manual) (0.00-3.0) % Basophils (Manual) (0.0-1.0) % Basophils # (0-0.4) Platelet Estimate (NORMAL) RBC Morphology Polychromasia Macrocytosis PT 17.4 H (8.83-12.87) SECONDS INR 1.53 (0.8-3.0) Sodium (137-145) mmol/L Potassium (3.5-5.1) mmol/L Chloride (98-107) mmol/L Carbon Dioxide (22-30) mmol/L Anion Gap (5-15) MEQ/L BUN (9-20) mg/dL Creatinine (0.66-1.25) mg/dL Estimated GFR ML/MIN Glucose (74-106) mg/dL POC Glucometer 161 H (74 to 106) mg/dL Lactic Acid (0.4-2.0) Calcium (8.4-10.2) mg/dL Total Bilirubin (0.2-1.3) mg/dL AST (17-59) U/L ALT (0-50) U/L Alkaline Phosphatase (38-126) U/L Troponin I 0.146 H* (0.000-0.034) ng/mL Serum Total Protein (6.3-8.2) g/dL Albumin (3.5-5.0) g/dL Amylase (30-110) U/L Lipase (23-300) U/L 11/09/20 11/09/20 11/09/20 Range/Units 12:10 12:10 11:56 WBC 9.6 (4.0-10.5) K/mm3 RBC 4.56 (4.1-5.6) M/mm3 Hgb 14.9 (12.5-18.0) gm/dl Hct 45.9 (42-50) % MCV 100.7 H (78-100) fl MCH 32.7 H (26-32) pg MCHC 32.5 (32-36) g/dl RDW 18.1 H (11.5-14.0) % Plt Count 391 (150-450) K/mm3 MPV 10.1 (7.5-11.0) fl Gran % 71.1 H (36.0-66.0) % Eos # (Auto) 0.15 (0-0.5) Absolute Lymphs (auto) 1.94 (1.0-4.6) Absolute Monos (auto) 0.60 (0.0-1.3) Lymphocytes % 20.2 L (24.0-44.0) % Monocytes % 6.3 (0.0-12.0) % Eosinophils % 1.6 (0.00-5.0) % Basophils % 0.8 (0.0-0.4) % Absolute Granulocytes 6.83 (1.4-6.9) Segmented Neutrophils 68 H (36.-66.) % Lymphocytes (Manual) 25 (24-44) % Monocytes (Manual) 5 (0.0-12.0) % Eosinophils (Manual) 1 (0.00-3.0) % Basophils (Manual) 1 (0.0-1.0) % Basophils # 0.08 (0-0.4) Platelet Estimate NORMAL (NORMAL) RBC Morphology ABNORMAL Polychromasia 1+ Macrocytosis 1+ PT (8.83-12.87) SECONDS INR (0.8-3.0) Sodium 135 L (137-145) mmol/L Potassium 2.6 L* (3.5-5.1) mmol/L Chloride 95 L (98-107) mmol/L Carbon Dioxide 19 L (22-30) mmol/L Anion Gap 22.6 H (5-15) MEQ/L BUN 36 H (9-20) mg/dL Creatinine 9.80 H (0.66-1.25) mg/dL Estimated GFR 5.8 ML/MIN Glucose 181 H (74-106) mg/dL POC Glucometer (74 to 106) mg/dL Lactic Acid 5.0 H (0.4-2.0) Calcium 9.7 (8.4-10.2) mg/dL Total Bilirubin 0.90 (0.2-1.3) mg/dL AST 31 (17-59) U/L ALT 15 (0-50) U/L Alkaline Phosphatase 43 (38-126) U/L Troponin I (0.000-0.034) ng/mL Serum Total Protein 6.4 (6.3-8.2) g/dL Albumin 3.9 (3.5-5.0) g/dL Amylase 44 (30-110) U/L Lipase 153 (23-300) U/L - Progress Progress: improved Progress Note: 11/09/20 14:25 Was excepted at [place] by Dr. David Hernandez Discussed with Dr.: Other (Dr Serrano) - Departure Departure Disposition: Transfer (We did discuss the problems with Dr. Serrano at [place] and he accepted the patient.) Clinical Impression: Dehydration, High anion gap metabolic acidosis, Elevated troponin, ESRD (end stage renal disease), Hypotension due to hypovolemia, Hypokalemia Condition: Fair Critical Care Time: No Referrals: [facility] [NON-STAFF PHY W/O PRIVILEGES] -
[2020-11-09] MEDS ORDERED: K-LYTE 25 MEQ ONE (13:13)
--- NOTE | 2020-11-09 13:14 | XRAY ---
Indication: Acute mental status change. Decreased blood pressure. Multiple contiguous axial images obtained through the head without contrast. Comparison: August 20, 2020. Stable age-appropriate global atrophy, mild periventricular degenerative micro-ischemia, small right occipital lobe infarct, small right paramedian infarct near the vertex, and small left cerebellum infarct. No acute intracranial hemorrhage, hydrocephalus, or mass effect. Fourth ventricle is midline. Bony calvarium intact. Visualized paranasal sinuses and mastoid air cells are clear. Impression: Continued nonacute senile brain with multifocal old infarcts as detailed.
[2020-11-09] MEDS ORDERED: Zofran 4 MG/2 ML VIAL ONE (14:18)
[2020-11-09] MEDS ORDERED: K-LYTE 25 MEQ PO ONE (14:21)
--- NOTE | 2020-11-09 16:47 | XRAY ---
Indication: Pain, loss of appetite, and low blood pressure and Multiple contiguous axial images obtained through the abdomen and pelvis without contrast as ordered. Comparison: None Lung bases demonstrates dependent atelectasis and tiny right effusion. Heart is not enlarged and demonstrates coronary and mitral valve calcifications. Noncontrasted stomach and bowel loops appear nonobstructed. Percutaneous peritoneal dialysis catheter coiled in the pelvis. Moderate abdominal/pelvic ascites that may or may not be related to peritoneal dialysis. No free air. Both kidneys are mildly atrophic without focal solid/cystic mass or hydronephrosis. Urinary bladder demonstrates mild circumferential wall thickening either incomplete distention versus cystitis. Remaining liver, gallbladder, pancreas, spleen, adrenal glands, kidneys, ureters, and bladder are unremarkable for noncontrast exam. Heavy scattered vascular calcifications. No AAA. Osseous structures intact with minimal degenerative spondylosis throughout the thoracolumbar spine and right L5 spondylolysis without spondylolisthesis. No ventral or inguinal hernias. Impression: 1. Peritoneal dialysis catheter in situ. Moderate abdomen/pelvic ascites more than expected for a peritoneal dialysis patient. 2. Urinary bladder wall thickening either incomplete distention versus cystitis. 3. Extensive arteriosclerotic disease and chronic bony findings.
[2020-11-09 18:42] VITALS: BP 71/50; PULSE 70; O2SAT 96
== END 2020-11-09 18:45 | disposition short-term general hospital (02) ==
LOC: ED 11:53
DX: R23.0 Cyanosis (principal); E86.0 Dehydration; E87.2 Acidosis; R77.8 Other specified abnormalities of plasma proteins; N18.6 End stage renal disease; I48.91 Unspecified atrial fibrillation; I95.9 Hypotension, unspecified; E87.6 Hypokalemia; E11.9 Type 2 diabetes mellitus without complications; I25.10 Atherosclerotic heart disease of native coronary artery without angina pectoris; I25.2 Old myocardial infarction; E78.5 Hyperlipidemia, unspecified; R53.1 Weakness; Z79.899 Other long term (current) drug therapy; Z79.01 Long term (current) use of anticoagulants
CPT/HCPCS: 36000; 36415; 70450; 71045; 74176; 80053; 82150; 82947; 83605; 83690; 84484; 85025; 85610; 87040; 93005; 99285; 99291; J2405; A9270-GY

== ENCOUNTER 2020-11-12 15:58 | Emergency (ER) | payer MEDICARE ==
--- NOTE | 2020-11-12 16:35 | XRAY ---
Indication: Short of breath. Comparison: November 09, 2020. Portable chest underinflated and clear. Heart and mediastinal structures within normal limits. No new/acute findings.
--- NOTE | 2020-11-12 16:39 | XRAY ---
Indication: Neck pain. Multiple contiguous axial images obtained through the cervical spine. Sagittal and coronal reformatted images obtained. Comparison: None Axial images negative for acute fracture, suspicious bony lesions, or spinal canal stenosis. Minimal C5-C6 endplate spurring. Sagittal and coronal reformatted images demonstrates normal alignment with minimal C5-C6 disc space narrowing. No acute compression fracture, subluxation, or jumped facet. Normal appearing craniocervical junction. Visualized noncontrasted soft tissues demonstrates moderate carotid calcifications bilaterally. CT head reported 3 days earlier. Impression: 1. Minimal C5-C6 degenerative disc disease. 2. Remaining CT cervical spine is negative.
[2020-11-12 16:47] LABS: Hematocrit 40.3 % (42-50); Mean Corpuscular Hemoglobin 32.6 pg (26-32); Mean Corpuscular Hgb Concent. 32.3 g/dl (32-36); Mean Platelet Volume 9.6 fl (7.5-11.0); Platelet Count 328 K/mm3 (150-450); Red Blood Count 3.99 M/mm3 (4.1-5.6); Red Cell Distribution Width 17.6 % (11.5-14.0); White Blood Count 9.8 K/mm3 (4.0-10.5)
[2020-11-12 16:53] LABS: INR 1.89 (0.8-3.0); PROTIME 21.5 SECONDS (8.83-12.87)
[2020-11-12 16:58] LABS: ALBUMIN 3.4 g/dL (3.5-5.0); ANION GAP 16.6 MEQ/L (5-15); BILIRUBIN,TOTAL 0.9 mg/dL (0.2-1.3); Calcium 8.8 mg/dL (8.4-10.2); Creatinine 1 9.57 mg/dL (0.66-1.25); Potassium 3.1 mmol/L (3.5-5.1); Total Protein 6.1 g/dL (6.3-8.2)
[2020-11-12 17:04] LABS: BAND 2 % (0.0-2.0); Basophil 1 % (0.0-1.0); Eosinophil 1 % (0.00-3.0); Lymphocytes 18 % (24-44); Metamyelocyte 1 %; Monocyte 7 % (0.0-12.0); Neutrophils 70 % (36.-66.); Nucleated Red Blood Cell 1 %; Total Cells Counted 100
[2020-11-12 17:05] LABS: ANISOCYTOSIS 1+; Macrocytosis 1+; Platelet Estimate NORMAL (NORMAL)
[2020-11-12 17:06] LABS: Polychromasia RARE
[2020-11-12 17:07] LABS: Absolute Neutrophil Ct (ANC) 7.08 (1.4-6.9)
[2020-11-12 17:14] VITALS: BP 104/50; PULSE 74; O2SAT 98
--- NOTE | 2020-11-12 17:26 | ERPHSYRPT ---
- History of Present Illness Time Seen by Provider: 11/12/20 16:20 Source: patient Exam Limitations: clinical condition Patient Subjective Stated Complaint: Pt states "my fingers hurt on my hand." Triage Nursing Assessment: Pt presented alert and oriented X 3, skin pwd Pt able to speak in clear full sentences. PT rubbing his knuckles on his right hand. Physician History: Patient is a 60-year-old male who presents with a complaint of pain in his hands. He was seen approximately 72 hours prior to this visit for another visit with the same complaint. He has known peripheral vascular disease and chronic peripheral neuropathy. Other problems including atrial fib for which she is on Eliquis chronic kidney disease on chronic peritoneal dialysis chronic osteomyelitis of the left foot CVA history of autoimmune hemolytic anemia hyperlipidemia multidrug-resistant organism necrosis peripheral vascular Proteus infection pressure ulcers on lower extremities and type 2 diabetes with chronic kidney disease and peripheral neuropathy. Timing/Duration: other (chronic) Character of Deficits: none Deficits: cannot walk Baseline/Normal Cognition: alert oriented x 3 Current Cognition: alert oriented x 3 Associated Symptoms: numbness/tingling in legs/feet, paresthesia Allergies/Adverse Reactions: ondansetron [From Zofran] Allergy (Verified 11/09/20 14:27) Home Medications: Folic Acid 1 mg PO DAILY 07/17/19 [History] Sevelamer Carbonate [Renvela] 1,600 mg PO TID 07/17/19 [History] Apixaban [Eliquis] 2.5 mg PO BID 07/27/20 [History] Fenofibrate 160 mg PO DAILY 07/27/20 [History] Insulin Lispro [Humalog] 1 units SQ Q6H PRN PRN 07/27/20 [History] Insulin Glargine,Hum.rec.anlog [Lantus] 1 unit DAILY 08/20/20 [History] Megestrol Acetate 40 mg/ml [Megace 40 MG/ML] 1 ml PO DAILY 08/20/20 [History] Midodrine HCl 5 mg [Proamatine 5 mg] 1 ea TID 08/20/20 [History] Famotidine 20 mg [Pepcid 20 MG] 20 mg PO BID 11/09/20 [History] Hydrocodone/Acetaminophen [Hydrocodone-Acetamin 5-325 mg] 1 tab PO Q4HPRN PRN 11/09/20 [History] Hx Tetanus, Diphtheria Vaccination/Date Given: Yes Hx Influenza Vaccination/Date Given: Yes Hx Pneumococcal Vaccination/Date Given: Yes Immunizations Up to Date: Yes Travel Risk - International Travel Have you traveled outside of the country in past 3 weeks: No - Coronavirus Screening Are you exhibiting any of the following symptoms?: No Close contact with a COVID-19 positive Pt in past 14-21 Days: No - Review of Systems Constitutional: Lethargy, Weakness Eyes: Other (Heavy cataract l eye) Ears, Nose, & Throat: No Symptoms Respiratory: No Symptoms Cardiac: Other (a fib) Abdominal/Gastrointestinal: No Symptoms Genitourinary Symptoms: No Symptoms Musculoskeletal: Arthralgias, Joint Pain, Myalgias Neurological: Dizziness Psychological: Depression, Emotional Lability Endocrine: No Symptoms Hematologic/Lymphatic: No Symptoms - Past Medical History Pertinent Past Medical History: Yes Neurological History: Peripheral Neuropathy, Stroke ENT History: Cataracts, Glaucoma, Macular Degeneration, Other Cardiac History: Coronary Artery Disease, High Cholesterol, Hypertension, Myocardial Infarction ([place]) Respiratory History: No Pertinent History Endocrine Medical History: Diabetes Type II, Hypoglycemia Musculoskeletal History: No Pertinent History GI Medical History: No Pertinent History History: Dialysis, Renal Disease Psycho-Social History: No Pertinent History Male Reproductive Disorders: No Pertinent History Other Medical History: legally blind bilaterateral eyes, 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, right upper arm fistula , unable to walk - Past Surgical History Past Surgical History: Yes Neuro Surgical History: No Pertinent History Cardiac: No Pertinent History Respiratory: No Pertinent History Gastrointestinal: No Pertinent History Genitourinary: No Pertinent History Musculoskeletal: No Pertinent History Male Surgical History: No Pertinent History Other Surgical History: fistula, amputation right part foot and toes - Social History Smoking Status: Never smoker Exposure to second hand smoke: No Drug Use: none Patient Lives Alone: No - Nursing Vital Signs Nursing Vital Signs: Initial Vital Signs Temperature 97.0 F 11/12/20 16:00 Pulse Rate 77 11/12/20 16:00 Respiratory Rate 20 11/12/20 16:00 Blood Pressure 100/54 11/12/20 16:00 O2 Sat by Pulse Oximetry 100 11/12/20 16:00 Pain Scale Pain Intensity [Right Hand] 6 Pain Intensity 6 - [place] Coma Scale Best Eye Response (Bebe): (4) open spontaneously Best Verbal Response ([place]): (5) oriented Best Motor Response ([place]): (6) obeys commands Bebe Total: 15 - Physical Exam General Appearance: mild distress Eye Exam: left eye: other (Is shrunken heavily cataract lacking vision) Ears, Nose, Throat Exam: normal ENT inspection, moist mucous membranes Neck Exam: normal inspection, non-tender, supple Respiratory: normal breath sounds, lungs clear, airway intact, No respiratory distress Cardiovascular: irregular Gastrointestinal: soft, No tenderness, No distention Back Exam: normal inspection Extremity Exam: other (Status post below-knee amputation of the left lower extremity) Mental Status: alert, oriented x 3, 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 Exam: normal hearing, normal speech Motor/Sensory: no motor deficit, sensory deficit Skin Exam: normal color, warm, dry SpO2 Interpretation: normal SpO2: 98 O2 Delivery: Room Air - Course Nursing assessment & vital signs reviewed: Yes - Radiology Exams Chest X-ray Interpretation: Negative - CT Exams Cervical Spine CT Interpretation: Negative Ordered Tests: Active Orders 24 hr Category Date Time Status EKG-ER Only STAT Care 11/12/20 16:10 Active IV Insertion STAT Care 11/12/20 16:10 Active CERVICAL SPINE WO CONTRAST [CT] Stat Exams 11/12/20 16:13 Completed CHEST 1 VIEW (PORTABLE) Stat Exams 11/12/20 16:11 Completed AMYLASE Stat Lab 11/12/20 16:40 Completed CBC W DIFF Stat Lab 11/12/20 16:40 Completed CMP Stat Lab 11/12/20 16:40 Completed LIPASE Stat Lab 11/12/20 16:40 Completed Lactic Acid Stat Lab 11/12/20 16:10 Completed Manual Differential NC Stat Lab 11/12/20 16:40 Completed PROTIME WITH INR Stat Lab 11/12/20 16:40 Completed Lab/Rad Data: Laboratory Result Diagrams 11/12/20 16:40 11/12/20 16:40 Laboratory Results 11/12/20 11/12/20 11/12/20 Range/Units 16:40 16:40 16:40 WBC 9.8 (4.0-10.5) K/mm3 RBC 3.99 L (4.1-5.6) M/mm3 Hgb 13.0 (12.5-18.0) gm/dl Hct 40.3 L (42-50) % MCV 101.0 H (78-100) fl MCH 32.6 H (26-32) pg MCHC 32.3 (32-36) g/dl RDW 17.6 H (11.5-14.0) % Plt Count 328 (150-450) K/mm3 MPV 9.6 (7.5-11.0) fl Absolute Granulocytes 7.08 H (1.4-6.9) Segmented Neutrophils 70 H (36.-66.) % Band Neutrophils 2 (0.0-2.0) % Lymphocytes (Manual) 18 L (24-44) % Monocytes (Manual) 7 (0.0-12.0) % Eosinophils (Manual) 1 (0.00-3.0) % Basophils (Manual) 1 (0.0-1.0) % Metamyelocytes 1 % Nucleated RBCs 1 % Platelet Estimate NORMAL (NORMAL) RBC Morphology ABNORMAL Polychromasia RARE Anisocytosis 1+ Macrocytosis 1+ PT 21.5 H (8.83-12.87) SECONDS INR 1.89 (0.8-3.0) Sodium 134 L (137-145) mmol/L Potassium 3.1 L (3.5-5.1) mmol/L Chloride 95 L (98-107) mmol/L Carbon Dioxide 26 (22-30) mmol/L Anion Gap 16.6 H (5-15) MEQ/L BUN 34 H (9-20) mg/dL Creatinine 9.57 H (0.66-1.25) mg/dL Estimated GFR 6.0 ML/MIN Glucose 126 H (74-106) mg/dL Lactic Acid (0.4-2.0) Calcium 8.8 (8.4-10.2) mg/dL Total Bilirubin 0.90 (0.2-1.3) mg/dL AST 29 (17-59) U/L ALT 13 (0-50) U/L Alkaline Phosphatase 42 (38-126) U/L Serum Total Protein 6.1 L (6.3-8.2) g/dL Albumin 3.4 L (3.5-5.0) g/dL Amylase 37 (30-110) U/L Lipase 92 (23-300) U/L 11/12/20 Range/Units 16:10 WBC (4.0-10.5) K/mm3 RBC (4.1-5.6) M/mm3 Hgb (12.5-18.0) gm/dl Hct (42-50) % MCV (78-100) fl MCH (26-32) pg MCHC (32-36) g/dl RDW (11.5-14.0) % Plt Count (150-450) K/mm3 MPV (7.5-11.0) fl Absolute Granulocytes (1.4-6.9) Segmented Neutrophils (36.-66.) % Band Neutrophils (0.0-2.0) % Lymphocytes (Manual) (24-44) % Monocytes (Manual) (0.0-12.0) % Eosinophils (Manual) (0.00-3.0) % Basophils (Manual) (0.0-1.0) % Metamyelocytes % Nucleated RBCs % Platelet Estimate (NORMAL) RBC Morphology Polychromasia Anisocytosis Macrocytosis PT (8.83-12.87) SECONDS INR (0.8-3.0) Sodium (137-145) mmol/L Potassium (3.5-5.1) mmol/L Chloride (98-107) mmol/L Carbon Dioxide (22-30) mmol/L Anion Gap (5-15) MEQ/L BUN (9-20) mg/dL Creatinine (0.66-1.25) mg/dL Estimated GFR ML/MIN Glucose (74-106) mg/dL Lactic Acid 1.9 (0.4-2.0) Calcium (8.4-10.2) mg/dL Total Bilirubin (0.2-1.3) mg/dL AST (17-59) U/L ALT (0-50) U/L Alkaline Phosphatase (38-126) U/L Serum Total Protein (6.3-8.2) g/dL Albumin (3.5-5.0) g/dL Amylase (30-110) U/L Lipase (23-300) U/L - Progress Progress: improved Progress Note: 11/12/20 17:29 At the time of discharge free of pain in his hands - Departure Departure Disposition: Home Clinical Impression: Neuropathy, Type 2 diabetes with nephropathy Condition: Stable Critical Care Time: No Referrals: [facility] [Primary Care Provider] - Instructions: Chronic Pain (DC)
== END 2020-11-12 18:23 | disposition home or self-care (01) ==
LOC: ED 15:58
DX: E11.40 Type 2 diabetes mellitus with diabetic neuropathy, unspecified (principal); I73.9 Peripheral vascular disease, unspecified; I48.91 Unspecified atrial fibrillation; N18.9 Chronic kidney disease, unspecified; R42 Dizziness and giddiness; I25.10 Atherosclerotic heart disease of native coronary artery without angina pectoris; E78.5 Hyperlipidemia, unspecified; I10 Essential (primary) hypertension; I25.2 Old myocardial infarction; Z79.01 Long term (current) use of anticoagulants
CPT/HCPCS: 36415; 71045; 72125; 80053; 82150; 83605; 83690; 85025; 85610; 99284